=== PATIENT | female | born 1980 | race Caucasian/White ===

== ENCOUNTER 2017-04-13 19:54 | Emergency (ER) | payer OTHER ==
[~2017-04-13 19:54] MED LIST: Cipro 500 MG PO ONE
[2017-04-13] MEDS ORDERED: MORPHINE SULFATE 4 MG INJ IV ONE ×2 (20:20→22:53)
[2017-04-13] MEDS ORDERED: Sodium Chloride 0.9% 1000 ML 1,000 ML IV STA (20:20)
[2017-04-13] MEDS ORDERED: Zofran 4 MG/2 ML VIAL IV ONE (20:20)
--- NOTE | 2017-04-13 20:25 | ERPHSYRPT ---
- History of Present Illness Time Seen by Provider: 04/13/17 20:22 Historian: patient Exam Limitations: no limitations Patient Subjective Stated Complaint: pt has co right side abd pain for todays then tonight it is worse than having 2 c- sections no fever no vomiting pos sore throat -history of similar pain in the past Triage Nursing Assessment: pt is awake and alert and holding hir right abd Physician History: 37-year-old white female with history of bronchitis anxiety is restless leg syndrome She arrives with complaint of right lower quadrant pain nausea symptoms for 2 days no vomiting no diarrhea no melena no hematochezia and no vaginal discharge. Past medical history includes bronchitis, anxiety, restless legs. Past surgical history includes , cholecystectomy, tubal ligation, carpal tunnel, tonsillectomy. Social history positive for tobacco use Timing/Duration: day(s) (2 days) Activities at Onset: none Quality: cramping Abdominal Pain Onset Location: RLQ Pain Radiation: flank (right flank) Severity of Pain-Max: moderate Severity of Pain-Current: moderate Modifying Factors: Improves With: nothing Associated Symptoms: back (right flank pain), nausea, No chest pain, No diaphoresis, No diarrhea, No fever/chills, No fatigue, No headache, No heartburn , No loss of appetite, No neck pain, No rash, No shortness of breath, No syncope , No vomiting, No weakness Previous symptoms: same symptoms as today (patient states she had similar symptoms with ovarian cysts in the past patient with normal pelvic ultrasound November of this year) Allergies/Adverse Reactions: Penicillins Allergy (Mild, Verified 04/13/17 20:27) Hives Home Medications: Sertraline HCl 50 mg [Zoloft 50 mg Tablet] 150 mg PO DAILY 10/08/16 [History ] Hx Tetanus, Diphtheria Vaccination/Date Given: Yes Hx Influenza Vaccination/Date Given: No Hx Pneumococcal Vaccination/Date Given: No - Review of Systems Constitutional: No Fever, No Chills Eyes: No Symptoms Respiratory: No Cough, No Dyspnea Cardiac: No Chest Pain, No Edema, No Syncope Abdominal/Gastrointestinal: Abdominal Pain, Nausea, No Vomiting, No Diarrhea, No Constipation, No Hematemesis, No Hematochezia, No Melena, No Dysphagia, No Appetite Changes Genitourinary Symptoms: Flank Pain (right flank pain), No Dysuria Musculoskeletal: Other (right flank pain), No Back Pain, No Neck Pain Skin: No Rash Neurological: No Dizziness, No Focal Weakness, No Sensory Changes Psychological: No Symptoms Endocrine: No Symptoms All Other Systems: Reviewed and Negative - Past Medical History Pertinent Past Medical History: Yes Neurological History: No Pertinent History ENT History: No Pertinent History Cardiac History: No Pertinent History Respiratory History: Bronchitis Endocrine Medical History: No Pertinent History Musculoskeletal History: Other GI Medical History: No Pertinent History History: No Pertinent History Psycho-Social History: Anxiety Female Reproductive Disorders: No Pertinent History Other Medical History: RESTLESS LEG SYNDROME. - Past Surgical History Past Surgical History: Yes Neuro Surgical History: No Pertinent History Cardiac: No Pertinent History Respiratory: No Pertinent History Gastrointestinal: Cholecystectomy Musculoskeletal: Orthopedic Surgery Female Surgical History: Section, Tubal Ligation Other Surgical History: CARPAL TUNNEL BILAT. TONSILS - Social History Smoking Status: Current every day smoker How long have you smoked: 15 YEARS Exposure to second hand smoke: No Drug Use: methamphetamines Patient Lives Alone: No - Female History Hx Last Menstrual Period: last month Hx Now: No - Nursing Vital Signs Nursing Vital Signs: Initial Vital Signs Temperature 98 F Temperature Source Oral Pulse Rate 90 Respiratory Rate 18 Blood Pressure [] 122/100 Pain Intensity 10 - Physical Exam General Appearance: moderate distress Eye Exam: PERRL/EOMI, eyes nml inspection Ears, Nose, Throat Exam: normal ENT inspection, pharynx normal, moist mucous membranes Neck Exam: normal inspection, non-tender, supple, full range of motion Respiratory Exam: normal breath sounds, lungs clear, No respiratory distress Cardiovascular Exam: regular rate/rhythm, normal heart sounds Gastrointestinal/Abdomen Exam: soft, normal bowel sounds, tenderness (right lower quadrant tenderness) Back Exam: CVA tenderness (right flank tenderness) Extremity Exam: normal inspection, normal range of motion, pelvis stable Neurologic Exam: alert, oriented x 3, cooperative, normal mood/affect, nml cerebellar function, sensation nml, No motor deficits Skin Exam: normal color, warm, dry SpO2 Interpretation: normal - Course Nursing assessment & vital signs reviewed: Yes - CT Exams Abdomen/Pelvis CT Interpretation: Tele-radiologist Report (CT abdomen and pelvis without contrast: Impression 1 right [place] ureteral without obstructing urolithiasis may be due to a passed calculus,reflux,or ascending infection, correlate with urinalysis. 2 cholecystectomy 3. Minimal right lower lobe small airway disease. Likely infectious/inflammatory bronchiolitis) Ordered Tests: Active Orders 24 hr Category Date Time Status Clean Catch Urine Specimen STAT Care 04/13/17 20:39 Active IV Insertion STAT Care 04/13/17 20:20 Active ABDOMEN AND PELVIS W/0 CONTRAS [CT] Stat Exams 04/13/17 21:18 Taken AMYLASE Stat Lab 04/13/17 20:30 Completed CBC W DIFF Stat Lab 04/13/17 20:30 Completed CMP Stat Lab 04/13/17 20:30 Completed HCG QUALITATIVE,SERUM Stat Lab 04/13/17 20:30 Completed LIPASE Stat Lab 04/13/17 20:30 Completed UA Stat Lab 04/13/17 20:33 Completed Medication Summary Discontinued Medications Generic Name Dose Route Start Last Admin Trade Name Freq PRN Reason Stop Dose Admin Sodium Chloride 1,000 mls @ 999 mls/hr 04/13/17 20:20 04/13/17 20:39 Sodium Chloride 0.9% 1000 Ml IV 04/13/17 21:20 999 mls/hr .Q1H1M STA Administration Sodium Chloride Confirm 04/13/17 20:29 Sodium Chloride 0.9% 1000 Ml Administered 04/13/17 20:30 Dose 1,000 mls @ ud .ROUTE .STK-MED ONE Ketorolac Tromethamine 30 mg 04/13/17 21:18 04/13/17 21:28 Toradol 30 Mg Injection IV 04/13/17 21:19 30 mg STAT ONE Administration Ketorolac Tromethamine Confirm 04/13/17 21:27 Toradol 30 Mg Injection Administered 04/13/17 21:28 Dose 30 mg .ROUTE .STK-MED ONE Morphine Sulfate 4 mg 04/13/17 20:20 04/13/17 20:38 Morphine Sulfate 4 Mg Inj IV 04/13/17 20:21 4 mg STAT ONE Administration Morphine Sulfate Confirm 04/13/17 20:29 Morphine Sulfate 4 Mg Inj Administered 04/13/17 20:30 Dose 4 mg .ROUTE .STK-MED ONE Ondansetron HCl 4 mg 04/13/17 20:20 04/13/17 20:38 Zofran 4 Mg/2 Ml Vial IV 04/13/17 20:21 4 mg STAT ONE Administration Ondansetron HCl Confirm 04/13/17 20:29 Zofran 4 Mg/2 Ml Vial Administered 04/13/17 20:30 Dose 4 mg .ROUTE .STK-MED ONE Lab/Rad Data: Laboratory Result Diagrams 04/13/17 20:30 04/13/17 20:30 Laboratory Results 04/13/17 04/13/17 04/13/17 Range/Units 20:33 20:30 20:30 WBC (4.0-10.5) K/mm3 RBC (4.1-5.4) M/mm3 Hgb (12.0-16.0) gm/dl Hct (35-47) % MCV (78-100) fl MCH (26-32) pg MCHC (32-36) g/dl RDW (11.5-14.0) % Plt Count (150-450) K/mm3 MPV (6-9.5) fl Gran % (36.0-66.0) % Lymphocytes % (24.0-44.0) % Monocytes % (0.0-12.0) % Eosinophils % (0.00-5.0) % Basophils % (0.0-0.4) % Basophils # (0-0.4) Sodium 137 (136-145) mEq/L Potassium 3.8 (3.5-5.1) mEq/L Chloride 105 (98-107) mEq/L Carbon Dioxide 23.4 (21-32) mEq/L Anion Gap 11.9 (5-15) MEQ/L BUN 14 (9-20) mg/dL Creatinine 0.95 (0.55-1.30) mg/dl Estimated GFR > 60 ML/MIN Glucose 106 (70-110) MG/DL Calcium 8.9 (8.5-10.1) mg/dL Total Bilirubin 0.2 (0.2-1.0) mg/dL AST 38 H (15-37) U/L ALT 56 (12-78) U/L Alkaline Phosphatase 81 (46-116) U/L Serum Total Protein 7.1 (6.4-8.2) gm/dL Albumin 3.3 L (3.4-5.0) g/dL Amylase 43 (25-115) U/L Lipase 136 (73-393) U/L Serum , Qual NEGATIVE (Negative) Ur Collection Type CLEAN CATCH Urine Color YELLOW (YELLOW) Urine Appearance CLEAR (CLEAR) Urine pH 5.5 (5-6) Ur Specific [place] 1.025 (1.005-1.025) Urine Protein NEGATIVE (Negative) Urine Glucose (UA) NEGATIVE (NEGATIVE) mg/dL Urine Ketones NEGATIVE (NEGATIVE) Urine Nitrite NEGATIVE (NEGATIVE) Urine Bilirubin NEGATIVE (NEGATIVE) Urine Urobilinogen 0.2 (0-1) mg/dL Urine WBC (Auto) NEGATIVE (NEGATIVE) Urine RBC (Auto) NEGATIVE (0-5) Edgard/ul Specimen Received [id number] 04/13/17 Range/Units 20:30 WBC 7.4 (4.0-10.5) K/mm3 RBC 5.12 (4.1-5.4) M/mm3 Hgb 15.2 (12.0-16.0) gm/dl Hct 45.1 (35-47) % MCV 88.1 (78-100) fl MCH 29.7 (26-32) pg MCHC 33.7 (32-36) g/dl RDW 12.6 (11.5-14.0) % Plt Count 259 (150-450) K/mm3 MPV 9.5 (6-9.5) fl Gran % 63.0 (36.0-66.0) % Lymphocytes % 25.8 (24.0-44.0) % Monocytes % 10.0 (0.0-12.0) % Eosinophils % 1.1 (0.00-5.0) % Basophils % 0.1 (0.0-0.4) % Basophils # 0.01 (0-0.4) Sodium (136-145) mEq/L Potassium (3.5-5.1) mEq/L Chloride (98-107) mEq/L Carbon Dioxide (21-32) mEq/L Anion Gap (5-15) MEQ/L BUN (9-20) mg/dL Creatinine (0.55-1.30) mg/dl Estimated GFR ML/MIN Glucose (70-110) MG/DL Calcium (8.5-10.1) mg/dL Total Bilirubin (0.2-1.0) mg/dL AST (15-37) U/L ALT (12-78) U/L Alkaline Phosphatase (46-116) U/L Serum Total Protein (6.4-8.2) gm/dL Albumin (3.4-5.0) g/dL Amylase (25-115) U/L Lipase (73-393) U/L Serum , Qual (Negative) Ur Collection Type Urine Color (YELLOW) Urine Appearance (CLEAR) Urine pH (5-6) Ur Specific [place] (1.005-1.025) Urine Protein (Negative) Urine Glucose (UA) (NEGATIVE) mg/dL Urine Ketones (NEGATIVE) Urine Nitrite (NEGATIVE) Urine Bilirubin (NEGATIVE) Urine Urobilinogen (0-1) mg/dL Urine WBC (Auto) (NEGATIVE) Urine RBC (Auto) (0-5) Edgard/ul Specimen Received - Progress Progress: improved Progress Note: 04/13/17 22:48 This is a 37-year-old white female arrives with complaint of right lower quadrant right flank pain. CT of the abdomen shows 1. Right hydro urinoma nephrosis without obstructing urolithiasis, nonspecific, may be due to a passed calculus, reflux, or ascending infection and should be correlated with urinalysis 2 cholecystectomy 3 minimal right lower lobe small airway disease likely infectious/inflammatory bronchiolitis. Patient has been given morphine for pain and will give patient more Will plan home with tramadol she states she cannot take hydrocodone. Will place patient on Cipro 500 mg orally twice a day for 10 days. Patient to follow-up with Dr. Elam - Departure Time of Disposition: 22:50 Departure Disposition: Home Clinical Impression: Right flank pain, Right lower quadrant pain, Bronchiolitis Condition: Fair Critical Care Time: No Instructions: Abdominal Pain-Adult Additional Instructions: Return home. Plenty of fluids. Cipro 500 mg orally twice a day for 10 days. Tramadol 50 mg 1 orally every 4-6 hours as needed for pain #12. Follow-up with Dr. Elam. Strain all urine. Return for acute distress or for severe symptoms. Prescriptions: Ciprofloxacin [Cipro 500 MG] 500 mg PO BIDAC #20 tablet Tramadol HCl 50 mg [Ultram 50 mg] 50 mg PO Q4-6HPRN PRN #12 tablet PRN Reason: Pain
[2017-04-13] MEDS ORDERED: MORPHINE SULFATE 4 MG INJ ONE ×2 (20:29→22:55)
[2017-04-13] MEDS ORDERED: Sodium Chloride 0.9% 1000 ML 1,000 ML ONE (20:29)
[2017-04-13] MEDS ORDERED: Zofran 4 MG/2 ML VIAL ONE (20:29)
[2017-04-13 20:39] LABS: BASOPHIL % 0.1 % (0.0-0.4); Eosinophil % 1.1 % (0.00-5.0); Lymphocytes % 25.8 % (24.0-44.0); Mean Cell Volume 88.1 fl (78-100); Mean Corpuscular Hemoglobin 29.7 pg (26-32); Mean Platelet Volume 9.5 fl (6-9.5); Platelet Count 259 K/mm3 (150-450); Red Blood Count 5.12 M/mm3 (4.1-5.4); Red Cell Distribution Width 12.6 % (11.5-14.0); White Blood Count 7.4 K/mm3 (4.0-10.5)
[2017-04-13 20:52] LABS: Collection Type CLEAN CATCH; Ph 5.5 (5-6)
[2017-04-13 20:53] LABS: COMPLETE URINE MICROSCOPIC? NO
[2017-04-13 21:03] LABS: ALBUMIN 3.3 g/dL (3.4-5.0); ALKALINE PHOSPHATASE 81 U/L (46-116); ANION GAP 11.9 MEQ/L (5-15); BILIRUBIN,TOTAL 0.2 mg/dL (0.2-1.0); BLOOD UREA NITROGEN 14 mg/dL (9-20); CHLORIDE 105 mEq/L (98-107); Carbon Dioxide 23.4 mEq/L (21-32); Glucose 106 MG/DL (70-110); LIPASE 136 U/L (73-393); Potassium 3.8 mEq/L (3.5-5.1); SGOT/AST 38 U/L (15-37); SGPT/ALT 56 U/L (12-78); SODIUM 137 mEq/L (136-145); Total Protein 7.1 gm/dL (6.4-8.2)
[2017-04-13] MEDS ORDERED: TORAdol 30 mg Injection IV ONE (21:18)
[2017-04-13] MEDS ORDERED: TORAdol 30 mg Injection ONE (21:27)
[2017-04-13] MEDS ORDERED: Levofloxacin 500 MG Tablet PO ONE (22:52)
[2017-04-13] MEDS ORDERED: Cipro 500 MG ONE (22:55)
[2017-04-13 23:22] VITALS: BP 128/92; PULSE 88; O2SAT 96
--- NOTE | 2017-04-14 09:13 | XRAY ---
Indication: Right flank pain. Multiple contiguous axial images obtained through the abdomen and pelvis without contrast as ordered. Comparison: November 06, 2015. Lung bases demonstrates new right lower lobe tree-in-bud opacities with mild bronchial wall thickening favoring underlying inflammatory/infectious process. No consolidation or large effusion. Heart is not enlarged. Noncontrasted stomach and bowel loops again appear nonobstructed. There is now mild diffuse scattered colonic fecal debris throughout. Normal appendix. No free fluid/air. Right kidney demonstrates minimal hydronephrosis and ureteral prominence without calculus. Question recent passage of calculus. Scattered tiny mesenteric nodes, possible adenitis. Again cholecystectomy. Remaining liver, pancreas, spleen, adrenal glands, kidneys, ureters, bladder, uterus, and aorta appear unremarkable for noncontrast exam. Osseous structures intact again with small thoracolumbar Schmorl nodes. Impression: 1. Right kidney demonstrates new minimal hydronephrosis and ureteral prominence along its entire course without obstructing calculus. Suspect recent passage of calculus. 2. Scattered tiny mesenteric nodes favoring mesenteric adenitis. 3. Fecal stasis without obstruction. 4. Right lower lobe tree-in-bud opacities with bronchial wall thickening favoring inflammatory/infectious process. Correlate clinically. Comment: Preliminary interpretation was made by [facility]. No critical discrepancy. CT DI 23.63
== END 2017-04-13 23:23 | disposition home or self-care (01) ==
LOC: ED 19:54
DX: R10.9 Unspecified abdominal pain (principal); R10.32 Left lower quadrant pain; J21.9 Acute bronchiolitis, unspecified
CPT/HCPCS: 36000; 36415; 74176; 80053; 81002; 82150; 83690; 84703; 85025; 96360; 96374; 96375; 96376; 99284; J1885; J2270; J2405; A9270-GY

== ENCOUNTER 2018-05-01 17:35 | Emergency (ER) | payer OTHER ==
[2018-05-01] MEDS ORDERED: BABY ASPIRIN 81 MG CHEW PO ONE (17:56)
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
[2018-05-01 18:27] LABS: BASOPHIL % 0.3 % (0.0-0.4); Basophil (Absolute #) 0.03 (0-0.4); Eosinophil % 0.9 % (0.00-5.0); Eosinophil (Absolute #) 0.08 (0-0.5); Granulocyte Absolute (ANC) 4.65 (1.4-6.9); Granulocytes % 53.9 % (36.0-66.0); Hematocrit 45.9 % (35-47); Hemoglobin 15.8 gm/dl (12.0-16.0); Lymphocyte (Absolute #) 3.22 (1.0-4.6); Lymphocytes % 37.2 % (24.0-44.0); Mean Cell Volume 84.8 fl (78-100); Mean Corpuscular Hemoglobin 29.2 pg (26-32); Mean Corpuscular Hgb Concent. 34.4 g/dl (32-36); Mean Platelet Volume 9.5 fl (6-9.5); Monocyte (Absolute #) 0.67 (0.0-1.3); Monocytes % 7.7 % (0.0-12.0); Platelet Count 304 K/mm3 (150-450); Red Blood Count 5.41 M/mm3 (4.1-5.4); Red Cell Distribution Width 13.1 % (11.5-14.0); White Blood Count 8.7 K/mm3 (4.0-10.5)
[2018-05-01 18:35] LABS: ALBUMIN 3.7 g/dL (3.5-5.0); ALKALINE PHOSPHATASE 64 U/L (38-126); AMYLASE 76 U/L (30-110); ANION GAP 12.6 MEQ/L (5-15); BLOOD UREA NITROGEN 14 mg/dL (7-17); CHLORIDE 109 mmol/L (98-107); Calcium 9.7 mg/dL (8.4-10.2); Carbon Dioxide 23 mmol/L (22-30); Creatinine 1 0.71 mg/dL (0.52-1.04); Glucose 102 mg/dL (74-106); LIPASE 158 U/L (23-300); Potassium 3.8 mmol/L (3.5-5.1); SGOT/AST 25 U/L (14-36); SGPT/ALT 42 U/L (0-35); SODIUM 141 mmol/L (137-145)
--- NOTE | 2018-05-01 20:07 | XRAY ---
Indication: Chest pain. Comparison: August 17, 2015. Portable chest again demonstrates normal heart, lungs, and bony thorax with a few incidental calcified granulomas.
[2018-05-01 21:55] VITALS: BP 112/76; PULSE 78; O2SAT 99
== END 2018-05-01 21:55 | disposition home or self-care (01) ==
LOC: ED 17:35
DX: R07.9 Chest pain, unspecified (principal)
CPT/HCPCS: 36000; 36415; 71045; 80053; 82150; 83690; 84484; 85025; 85379; 93005; 93041; 99284

== ENCOUNTER 2018-06-18 12:12 | Emergency (ER) | payer OTHER ==
--- NOTE | 2018-06-18 12:26 | ERPHSYRPT ---
- History of Present Illness Time Seen by Provider: 06/18/18 12:20 Source: patient Exam Limitations: no limitations Physician History: The patient is a 38-year-old left-handed female complaining that she accidentally injured her left middle finger while at work prior to arrival. 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 When the car door was open, the patient had her left hand in the door opening. The elderly lady closed the door on her left middle finger. The supply chain logistics manager of [employer] immediately gave the patient some Tylenol. Her past medical history is unremarkable. The patient does not want any narcotics. Occurred: just prior to arrival Method of Injury: direct blow Quality: constant, sharpness Severity of Pain-Max: moderate Severity of Pain-Current: moderate Extremities Pain Location: 3rd finger: left Modifying Factors: Improves With: pain medication (tylenol) Associated Symptoms: none Allergies/Adverse Reactions: Penicillins Allergy (Mild, Verified 05/01/18 17:44) Hives Hx Tetanus, Diphtheria Vaccination/Date Given: Yes Hx Influenza Vaccination/Date Given: No Hx Pneumococcal Vaccination/Date Given: No - Review of Systems Constitutional: No Fever, No Chills Eyes: No Symptoms Ears, Nose, & Throat: No Symptoms Respiratory: No Cough, No Dyspnea Cardiac: No Chest Pain, No Edema, No Syncope Abdominal/Gastrointestinal: No Abdominal Pain, No Nausea, No Vomiting, No Diarrhea Genitourinary Symptoms: No Dysuria Musculoskeletal: Injury Skin: No Rash Neurological: No Dizziness, No Focal Weakness, No Sensory Changes Psychological: No Symptoms Endocrine: No Symptoms Hematologic/Lymphatic: No Symptoms Immunological/Allergic: No Symptoms All Other Systems: Reviewed and Negative - Past Medical History Pertinent Past Medical History: Yes Neurological History: No Pertinent History ENT History: No Pertinent History Cardiac History: No Pertinent History Respiratory History: Bronchitis Endocrine Medical History: No Pertinent History Musculoskeletal History: Other GI Medical History: No Pertinent History History: No Pertinent History Psycho-Social History: Anxiety, Bipolar, Depression Female Reproductive Disorders: No Pertinent History Other Medical History: RESTLESS LEG SYNDROME. - Past Surgical History Past Surgical History: Yes Neuro Surgical History: No Pertinent History Cardiac: No Pertinent History Respiratory: No Pertinent History Gastrointestinal: Cholecystectomy Musculoskeletal: Orthopedic Surgery Female Surgical History: Section, Tubal Ligation Other Surgical History: CARPAL TUNNEL BILAT. TONSILS - Social History Smoking Status: Current every day smoker How long have you smoked: 20 Exposure to second hand smoke: No Drug Use: marijuana Patient Lives Alone: No - Nursing Vital Signs Nursing Vital Signs: Initial Vital Signs Temperature 98.0 F 06/18/18 12:16 Pulse Rate 88 06/18/18 12:16 Respiratory Rate 18 06/18/18 12:16 Blood Pressure 101/67 06/18/18 12:16 O2 Sat by Pulse Oximetry 100 06/18/18 12:16 Pain Scale Pain Intensity 6 - Physical Exam General Appearance: mild distress Eyes, Ears, Nose, Throat Exam: moist mucous membranes Neck Exam: non-tender, supple Cardiovascular/Respiratory Exam: chest non-tender, normal breath sounds, regular rate/rhythm, no respiratory distress Abdominal Exam: non-tender, No guarding Back Exam: normal inspection, No vertebral tenderness Shoulder Exam: normal inspection Elbow/Forearm Exam: normal inspection Wrist Exam: normal inspection Hand Exam: limited ROM (left middle finger at IP.), soft tissue tenderness, stiffness, swelling Neuro/Tendon Exam: normal sensation, normal motor functions Mental Status Exam: alert, oriented x 3, cooperative Skin Exam: normal color, warm, dry SpO2 Interpretation: normal Oxygen Delivery: Room Air - Radiology Exams Left Hand X-ray Interpretation: Reviewed by me, Teleradiologist Report (per Dr Dukes) , Negative, No Fracture Ordered Tests: Active Orders 24 hr Category Date Time Status Cold Application STAT Care 06/18/18 12:18 Active HAND (MINIMUM 3 VIEWS) Stat Exams 06/18/18 12:28 Taken Medication Summary Discontinued Medications Generic Name Dose Route Start Last Admin Trade Name Jen PRN Reason Stop Dose Admin Ketorolac Tromethamine 60 mg 06/18/18 12:28 06/18/18 12:32 Toradol 30 Mg Injection IM 06/18/18 12:29 60 mg STAT ONE Administration Ketorolac Tromethamine Confirm 06/18/18 12:30 Toradol 30 Mg Injection Administered 06/18/18 12:31 Dose 60 mg .ROUTE .STK-MED ONE - Progress Progress: improved Counseled pt/family regarding: rad results - Departure Time of Disposition: 14:11 Departure Disposition: Home Clinical Impression: Contusion of left middle finger without damage to nail Condition: Stable Critical Care Time: No Referrals: JANUSZ ISAACS [Primary Care Provider] - Additional Instructions: You have a contusion to your left finger. There are no broken bones. Apply ice as needed to the area. Take naproxen 500 mg 2 times a day as needed. Follow-up as needed. Prescriptions: Naproxen 500 mg PO BID #30 tablet.
[2018-06-18] MEDS ORDERED: TORAdol 30 mg Injection IM ONE (12:28)
[2018-06-18] MEDS ORDERED: TORAdol 30 mg Injection ONE (12:30)
[2018-06-18 13:29] VITALS: PULSE 76
[2018-06-18 14:16] VITALS: BP 119/76; O2SAT 98
--- NOTE | 2018-06-18 22:02 | XRAY ---
Indication: Pain following car door injury. Comparison: September 05, 2011. 3 views of the left hand demonstrates normal bones, articulation, and soft tissues. Comment: Preliminary interpretation was made by [facility]. No discrepancy.
== END 2018-06-18 14:20 | disposition home or self-care (01) ==
LOC: ED 12:12
DX: S60.032A Contusion of left middle finger without damage to nail, initial encounter (principal); W23.0XXA Caught, crushed, jammed, or pinched between moving objects, initial encounter; Y93.89 Activity, other specified; Y92.511 Restaurant or cafe as the place of occurrence of the external cause; Y99.0 Civilian activity done for income or pay
CPT/HCPCS: 73130; 96372; 99284; J1885

== ENCOUNTER 2019-01-03 15:47 | Emergency (ER) | payer OTHER ==
[2019-01-03] MEDS ORDERED: Sodium Chloride 0.9% 1000 ML 1,000 ML IV STA (16:19)
[2019-01-03] MEDS ORDERED: TORAdol 30 mg Injection IV ONE (16:19)
[2019-01-03] MEDS ORDERED: Zofran 4 MG/2 ML VIAL IV ONE (16:19)
[2019-01-03] MEDS ORDERED: Zofran 4 MG/2 ML VIAL ONE (16:23)
[2019-01-03] MEDS ORDERED: TORAdol 30 mg Injection ONE (16:23)
[2019-01-03] MEDS ORDERED: Sodium Chloride 0.9% 1000 ML 1,000 ML ONE (16:23)
--- NOTE | 2019-01-03 16:24 | ERPHSYRPT ---
- History of Present Illness Time Seen by Provider: 01/03/19 16:19 Historian: patient Exam Limitations: no limitations Patient Subjective Stated Complaint: STATES RIGHT LOWER ABD PAIN SINCE 8PM LAST NIGHT. DENIES N/V/D. Triage Nursing Assessment: AMBULATED TO ROOM PER SELF. SKIN W/D, COLOR NORMAL, RESP NONLABORED. ABD SOFT, TENDER RIGHT LOWER QUAD. NORMAL BOWEL SOUNDS. URINE CLEAR. Physician History: 38-year-old white female arrives with complaint of right lower quadrant abdominal pain associated with nausea symptoms since last night no vomiting no fevers. Past medical history includes bronchitis, anxiety, restless leg, bipolar depression Past surgical history includes , cholecystectomy, tubal ligation, carpal tunnel, tonsillectomy Social history former methamphetamine user, occasional alcohol use, positive tobacco use Timing/Duration: yesterday Activities at Onset: none Quality: cramping Abdominal Pain Onset Location: RLQ Pain Radiation: no radiation Severity of Pain-Max: moderate Severity of Pain-Current: moderate Modifying Factors: Improves With: nothing Associated Symptoms: nausea, No back, No chest pain, No diaphoresis, No diarrhea , No fever/chills, No fatigue, No headache, No heartburn, No loss of appetite, No neck pain, No rash, No shortness of breath, No syncope, No vomiting, No weakness Previous symptoms: same symptoms as today (patient had similar symptoms with dilatation of a ureter in the past) Allergies/Adverse Reactions: Penicillins Allergy (Mild, Verified 01/03/19 16:03) Hives Home Medications: Ciprofloxacin HCl/Dexameth [Ciprodex Otic Suspension] 7.5 ml OT BID 01/03/19 [ History] Naproxen 500 mg PO BIDPRN PRN 01/03/19 [History] Prednisone 20 mg [Deltasone 20 mg] 20 mg PO DAILY 01/03/19 [History] Sertraline HCl 50 mg [Zoloft 50 mg Tablet] 50 mg PO BID 01/03/19 [History] Hx Tetanus, Diphtheria Vaccination/Date Given: Yes (2014) Hx Influenza Vaccination/Date Given: Yes Hx Pneumococcal Vaccination/Date Given: No - Review of Systems Constitutional: No Fever, No Chills Eyes: No Symptoms Ears, Nose, & Throat: No Symptoms Respiratory: No Cough, No Dyspnea Cardiac: No Chest Pain, No Edema, No Syncope Abdominal/Gastrointestinal: Abdominal Pain, Nausea, No Vomiting, No Diarrhea, No Constipation, No Hematemesis, No Hematochezia, No Melena, No Dysphagia, No Appetite Changes Genitourinary Symptoms: No Dysuria Musculoskeletal: No Back Pain, No Neck Pain Skin: No Rash Neurological: No Dizziness, No Focal Weakness, No Sensory Changes Psychological: No Symptoms Endocrine: No Symptoms All Other Systems: Reviewed and Negative - Past Medical History Pertinent Past Medical History: Yes Neurological History: No Pertinent History ENT History: No Pertinent History Cardiac History: No Pertinent History Respiratory History: Bronchitis Endocrine Medical History: No Pertinent History Musculoskeletal History: Other GI Medical History: No Pertinent History History: No Pertinent History Psycho-Social History: Anxiety, Bipolar, Depression Female Reproductive Disorders: No Pertinent History Other Medical History: RESTLESS LEG SYNDROME. - Past Surgical History Past Surgical History: Yes Neuro Surgical History: No Pertinent History Cardiac: No Pertinent History Respiratory: No Pertinent History Gastrointestinal: Cholecystectomy Musculoskeletal: Orthopedic Surgery Female Surgical History: Section, Tubal Ligation Other Surgical History: CARPAL TUNNEL - Social History Smoking Status: Current every day smoker How long have you smoked: 20 Exposure to second hand smoke: No Drug Use: marijuana Patient Lives Alone: No - Female History Hx Now: No - Nursing Vital Signs Nursing Vital Signs: Initial Vital Signs Temperature 97.8 F 01/03/19 15:53 Pulse Rate 113 H 01/03/19 15:53 Respiratory Rate 18 01/03/19 15:53 Blood Pressure 150/98 01/03/19 15:53 O2 Sat by Pulse Oximetry 98 01/03/19 15:53 Pain Scale Pain Intensity 8 - Physical Exam General Appearance: moderate distress Eye Exam: PERRL/EOMI, eyes nml inspection Ears, Nose, Throat Exam: normal ENT inspection, pharynx normal, moist mucous membranes Neck Exam: normal inspection, non-tender, supple, full range of motion Respiratory Exam: normal breath sounds, lungs clear, No respiratory distress Cardiovascular Exam: regular rate/rhythm, normal heart sounds, capillary refill <2 sec Gastrointestinal/Abdomen Exam: soft, tenderness (right lower quadrant tenderness ), No distention, No mass, No guarding, No ecchymosis, No pulsatile mass, No rebound, No hernia, No hepatomegaly, No organomegaly, No splenomegaly Back Exam: normal inspection, normal range of motion, No CVA tenderness, No vertebral tenderness Extremity Exam: normal inspection, normal range of motion, pelvis stable Neurologic Exam: alert, oriented x 3, cooperative, household personal assistant II-XII nml as tested, normal mood/affect, nml cerebellar function, sensation nml, No motor deficits Skin Exam: normal color, warm, dry SpO2 Interpretation: normal (98%) SpO2: 98 - Course Nursing assessment & vital signs reviewed: Yes - CT Exams Abdomen/Pelvis CT Interpretation: Discussed w/radiologist (CT abdomen and pelvis: Compared to April 13, 2017 impression: Worsening moderate diffuse fecal stasis normal appendix. Remaining abdomen and pelvis negative) Ordered Tests: Active Orders 24 hr Category Date Time Status Clean Catch Urine Specimen STAT Care 01/03/19 16:14 Active IV Insertion STAT Care 01/03/19 16:13 Active ABDOMEN AND PELVIS W/0 CONTRAS [CT] Stat Exams 01/03/19 16:20 Taken AMYLASE Stat Lab 01/03/19 16:38 Completed CBC W DIFF Stat Lab 01/03/19 16:38 Completed CMP Stat Lab 01/03/19 16:38 Completed HCG QUALITATIVE,SERUM Stat Lab 01/03/19 16:38 Completed LIPASE Stat Lab 01/03/19 16:38 Completed UA W/RFX UR CULTURE Stat Lab 01/03/19 16:21 Completed Medication Summary Discontinued Medications Generic Name Dose Route Start Last Admin Trade Name Freq PRN Reason Stop Dose Admin Sodium Chloride 1,000 mls @ 999 mls/hr 01/03/19 16:19 01/03/19 16:26 Sodium Chloride 0.9% 1000 Ml IV 01/03/19 17:19 999 mls/hr .Q1H1M STA Administration Sodium Chloride Confirm 01/03/19 16:23 Sodium Chloride 0.9% 1000 Ml Administered 01/03/19 16:24 Dose 1,000 mls @ ud .ROUTE .STK-MED ONE Ketorolac Tromethamine 30 mg 01/03/19 16:19 01/03/19 16:26 Toradol 30 Mg Injection IV 01/03/19 16:20 30 mg STAT ONE Administration Ketorolac Tromethamine Confirm 01/03/19 16:23 Toradol 30 Mg Injection Administered 01/03/19 16:24 Dose 30 mg .ROUTE .STK-MED ONE Ondansetron HCl 4 mg 01/03/19 16:19 01/03/19 16:26 Zofran 4 Mg/2 Ml Vial IV 01/03/19 16:20 4 mg STAT ONE Administration Ondansetron HCl Confirm 01/03/19 16:23 Zofran 4 Mg/2 Ml Vial Administered 01/03/19 16:24 Dose 4 mg .ROUTE .STK-MED ONE Lab/Rad Data: Laboratory Result Diagrams 01/03/19 16:38 01/03/19 16:38 Laboratory Results 01/03/19 01/03/19 01/03/19 Range/Units 16:38 16:38 16:38 WBC 11.0 H (4.0-10.5) K/mm3 RBC 4.73 (4.1-5.4) M/mm3 Hgb 14.1 (12.0-16.0) gm/dl Hct 42.6 (35-47) % MCV 90.1 (78-100) fl MCH 29.8 (26-32) pg MCHC 33.1 (32-36) g/dl RDW 13.2 (11.5-14.0) % Plt Count 147 L (150-450) K/mm3 MPV 12.4 H (6-9.5) fl Gran % 79.9 H (36.0-66.0) % Eos # (Auto) 0 (0-0.5) Absolute Lymphs (auto) 1.86 (1.0-4.6) Absolute Monos (auto) 0.33 (0.0-1.3) Lymphocytes % 17.0 L (24.0-44.0) % Monocytes % 3.0 (0.0-12.0) % Eosinophils % 0.0 (0.00-5.0) % Basophils % 0.1 (0.0-0.4) % Absolute Granulocytes 8.75 H (1.4-6.9) Basophils # 0.01 (0-0.4) Sodium 139 (137-145) mmol/L Potassium 4.4 (3.5-5.1) mmol/L Chloride 104 (98-107) mmol/L Carbon Dioxide 25 (22-30) mmol/L Anion Gap 14.2 (5-15) MEQ/L BUN 13 (7-17) mg/dL Creatinine 0.57 (0.52-1.04) mg/dL Estimated GFR > 60.0 ML/MIN Glucose 130 H (74-106) mg/dL Calcium 9.4 (8.4-10.2) mg/dL Total Bilirubin 0.40 (0.2-1.3) mg/dL AST 33 (14-36) U/L ALT 43 H (0-35) U/L Alkaline Phosphatase 65 (38-126) U/L Serum Total Protein 7.6 (6.3-8.2) g/dL Albumin 4.2 (3.5-5.0) g/dL Amylase 73 (30-110) U/L Lipase 74 (23-300) U/L Serum , Qual NEGATIVE (Negative) Urine Color (YELLOW) Urine Appearance (CLEAR) Urine pH (5-6) Ur Specific [place] (1.005-1.025) Urine Protein (Negative) Urine Ketones (NEGATIVE) Urine Blood (0-5) Edgard/ul Urine Nitrite (NEGATIVE) Urine Bilirubin (NEGATIVE) Urine Urobilinogen (0-1) mg/dL Ur Leukocyte Esterase (NEGATIVE) Urine WBC (Auto) (0-5) /HPF Urine RBC (Auto) (0-2) /HPF U Epithel Cells (Auto) (FEW) /HPF Urine Bacteria (Auto) (NEGATIVE) /HPF Urine Mucus (Auto) (NEGATIVE) /HPF Urine Culture Reflexed (NO) Urine Glucose (NEGATIVE) mg/dL 01/03/19 Range/Units 16:21 WBC (4.0-10.5) K/mm3 RBC (4.1-5.4) M/mm3 Hgb (12.0-16.0) gm/dl Hct (35-47) % MCV (78-100) fl MCH (26-32) pg MCHC (32-36) g/dl RDW (11.5-14.0) % Plt Count (150-450) K/mm3 MPV (6-9.5) fl Gran % (36.0-66.0) % Eos # (Auto) (0-0.5) Absolute Lymphs (auto) (1.0-4.6) Absolute Monos (auto) (0.0-1.3) Lymphocytes % (24.0-44.0) % Monocytes % (0.0-12.0) % Eosinophils % (0.00-5.0) % Basophils % (0.0-0.4) % Absolute Granulocytes (1.4-6.9) Basophils # (0-0.4) Sodium (137-145) mmol/L Potassium (3.5-5.1) mmol/L Chloride (98-107) mmol/L Carbon Dioxide (22-30) mmol/L Anion Gap (5-15) MEQ/L BUN (7-17) mg/dL Creatinine (0.52-1.04) mg/dL Estimated GFR ML/MIN Glucose (74-106) mg/dL Calcium (8.4-10.2) mg/dL Total Bilirubin (0.2-1.3) mg/dL AST (14-36) U/L ALT (0-35) U/L Alkaline Phosphatase (38-126) U/L Serum Total Protein (6.3-8.2) g/dL Albumin (3.5-5.0) g/dL Amylase (30-110) U/L Lipase (23-300) U/L Serum , Qual (Negative) Urine Color YELLOW (YELLOW) Urine Appearance CLEAR (CLEAR) Urine pH 8.0 (5-6) Ur Specific [place] 1.012 (1.005-1.025) Urine Protein NEGATIVE (Negative) Urine Ketones NEGATIVE (NEGATIVE) Urine Blood NEGATIVE (0-5) Edgard/ul Urine Nitrite NEGATIVE (NEGATIVE) Urine Bilirubin NEGATIVE (NEGATIVE) Urine Urobilinogen NEGATIVE (0-1) mg/dL Ur Leukocyte Esterase TRACE (NEGATIVE) Urine WBC (Auto) NONE (0-5) /HPF Urine RBC (Auto) NONE (0-2) /HPF U Epithel Cells (Auto) RARE (FEW) /HPF Urine Bacteria (Auto) NONE SEEN (NEGATIVE) /HPF Urine Mucus (Auto) SLIGHT (NEGATIVE) /HPF Urine Culture Reflexed NO (NO) Urine Glucose NEGATIVE (NEGATIVE) mg/dL - Progress Progress: improved Progress Note: 01/03/19 17:20 Patient improved after receiving Toradol 30 mg IV and normal saline and Zofran. Patient's CBC essentially normal urinalysis essentially normal hCG negative chemistry essentially normal (glucose 1:30 SGPT 43 otherwise normal) amylase lipase are normal. CT abdomen and pelvis worsening moderate diffuse fecal stasis normal appendix. Remaining abdomen/pelvis negative. Will release with prescription for MiraLAX Patient to go to clear fluids 24-48 hours Tylenol as needed for pain. - Departure Time of Disposition: 17:22 Departure Disposition: [facility]Care Home Clinical Impression: Abdominal pain Qualifiers: Abdominal location: right lower quadrant Qualified Code(s): R10.31 - Right lower quadrant pain Constipation Qualifiers: Constipation type: unspecified constipation type Qualified Code(s): K59.00 - Constipation, unspecified Condition: Fair Critical Care Time: No Referrals: JANUSZ ISAACS [Primary Care Provider] - Instructions: Acute Abdomen (Belly Pain), Adult (DC) Additional Instructions: Return home. Clear fluids only 24-48 hours if abdominal pain. MiraLAX 1 scoop in 8 ounces of water orally daily. Tylenol every 4 hours as needed for pain. Follow-up with prison doctor if symptoms worse, no better in 24-48 hours or persist longer than 48 hours. Return for acute distress or for severe symptoms.
[2019-01-03 16:39] LABS: BASOPHIL % 0.1 % (0.0-0.4); Basophil (Absolute #) 0.01 (0-0.4); Eosinophil (Absolute #) 0 (0-0.5); Granulocyte Absolute (ANC) 8.75 (1.4-6.9); Granulocytes % 79.9 % (36.0-66.0); Hematocrit 42.6 % (35-47); Hemoglobin 14.1 gm/dl (12.0-16.0); Lymphocyte (Absolute #) 1.86 (1.0-4.6); Mean Cell Volume 90.1 fl (78-100); Mean Corpuscular Hemoglobin 29.8 pg (26-32); Mean Corpuscular Hgb Concent. 33.1 g/dl (32-36); Mean Platelet Volume 12.4 fl (6-9.5); Monocyte (Absolute #) 0.33 (0.0-1.3); Platelet Count 147 K/mm3 (150-450); Red Blood Count 4.73 M/mm3 (4.1-5.4); Red Cell Distribution Width 13.2 % (11.5-14.0)
[2019-01-03 16:42] LABS: Appearance CLEAR (CLEAR); Bilirubin NEGATIVE (NEGATIVE); Blood NEGATIVE Ery/ul (0-5); Epithelial Cells RARE /HPF (FEW); Glucose NEGATIVE (NEGATIVE); Ketones NEGATIVE (NEGATIVE); Leukocyte Esterase TRACE (NEGATIVE); Mucus SLIGHT /HPF (NEGATIVE); Nitrite NEGATIVE (NEGATIVE); Protein,Urine Dip NEGATIVE (Negative); Specific Gravity 1.012 (1.005-1.025); Urobilinogen NEGATIVE mg/dL (0-1)
[2019-01-03 16:43] LABS: Bacteria NONE SEEN /HPF (NEGATIVE)
[2019-01-03 16:49] LABS: ALBUMIN 4.2 g/dL (3.5-5.0); ALKALINE PHOSPHATASE 65 U/L (38-126); AMYLASE 73 U/L (30-110); ANION GAP 14.2 MEQ/L (5-15); BLOOD UREA NITROGEN 13 mg/dL (7-17); CHLORIDE 104 mmol/L (98-107); Calcium 9.4 mg/dL (8.4-10.2); Carbon Dioxide 25 mmol/L (22-30); Creatinine 1 0.57 mg/dL (0.52-1.04); Glucose 130 mg/dL (74-106); LIPASE 74 U/L (23-300); Potassium 4.4 mmol/L (3.5-5.1); SGOT/AST 33 U/L (14-36); SGPT/ALT 43 U/L (0-35); SODIUM 139 mmol/L (137-145); Total Protein 7.6 g/dL (6.3-8.2)
[2019-01-03 17:37] VITALS: BP 123/82; PULSE 88; O2SAT 96
--- NOTE | 2019-01-04 08:41 | XRAY ---
Indication: Right lower quadrant pain. Elevated WBC and ALT. Multiple contiguous axial images obtained through the abdomen and pelvis without contrast as ordered. Comparison: April 13, 2017. Lung bases essentially clear. Heart is not enlarged. Stomach is distended with food/fluid. Noncontrasted stomach and bowel loops appear nonobstructed. Normal appendix. No free fluid/air. Marked worsening diffuse scattered colonic fecal debris throughout. Again previous cholecystectomy. Remaining liver, pancreas, spleen, adrenal glands, kidneys, ureters, bladder, uterus, and aorta appear unremarkable for noncontrast exam. Osseous structures intact again with mild degenerative changes throughout the spine and multilevel small Schmorl nodes. Impression: 1. Marked worsening diffuse fecal stasis. 2. Remaining CT abdomen/pelvis without contrast exam is negative. CT DI 19.01
== END 2019-01-03 17:40 | disposition home or self-care (01) ==
LOC: ED 15:47
DX: R10.31 Right lower quadrant pain (principal); K59.00 Constipation, unspecified; F12.90 Cannabis use, unspecified, uncomplicated; F19.10 Other psychoactive substance abuse, uncomplicated; F41.9 Anxiety disorder, unspecified; F31.9 Bipolar disorder, unspecified; Z79.899 Other long term (current) drug therapy
CPT/HCPCS: 36000; 36415; 74176; 80053; 81001; 81025; 82150; 83690; 85025; 96360; 96374; 96375; 99284; J1885; J2405

== ENCOUNTER 2020-09-20 19:32 | Emergency (ER) | payer OTHER ==
[2020-09-20 19:55] VITALS: BP 125/70; PULSE 94; O2SAT 100
[2020-09-20] MEDS ORDERED: Zofran 4 MG/2 ML VIAL IV ONE (20:11)
[2020-09-20] MEDS ORDERED: Sodium Chloride 0.9% 1000 ML 1,000 ML IV STA (20:12)
[2020-09-20] MEDS ORDERED: TORAdol 30 mg Injection IV ONE (20:17)
--- NOTE | 2020-09-20 20:23 | ERPHSYRPT ---
- History of Present Illness Historian: patient Exam Limitations: clinical condition Patient Subjective Stated Complaint: "My side hurts." Triage Nursing Assessment: . Physician History: 40yo female with no medical hx but surgical hx of GB removal and C/S. Having left sided abd and flank pain x 5 weeks. NV x 2 weeks. Occasional diarrhea. No fever. Denies ETOH or drug use. NO hx of UTIs or kidney stones. Denies URI or GERD. Timing/Duration: week(s) (5) Activities at Onset: none Quality: sharpness, stabbing Abdominal Pain Onset Location: LUQ, LLQ, flank Pain Radiation: no radiation Severity of Pain-Max: severe Severity of Pain-Current: severe Modifying Factors: Improves With: nothing Associated Symptoms: nausea, vomiting Previous symptoms: no prior history Allergies/Adverse Reactions: Penicillins Allergy (Mild, Verified 09/20/20 19:47) Hives Hx Tetanus, Diphtheria Vaccination/Date Given: Yes Hx Influenza Vaccination/Date Given: No Hx Pneumococcal Vaccination/Date Given: No Travel Risk - International Travel Have you traveled outside of the country in past 3 weeks: No - Coronavirus Screening Are you exhibiting any of the following symptoms?: Yes Symptoms: Vomiting/Diarrhea Close contact with a COVID-19 positive Pt in past 14-21 Days: No - Review of Systems Constitutional: No Fever, No Chills Eyes: No Symptoms Ears, Nose, & Throat: No Symptoms Respiratory: No Cough, No Dyspnea Cardiac: No Chest Pain, No Edema, No Syncope Abdominal/Gastrointestinal: Abdominal Pain, Nausea, Vomiting, Diarrhea Genitourinary Symptoms: Flank Pain, No Dysuria Musculoskeletal: No Back Pain, No Neck Pain Skin: No Rash Neurological: No Dizziness, No Focal Weakness, No Sensory Changes Psychological: No Symptoms Endocrine: No Symptoms All Other Systems: Reviewed and Negative - Past Medical History Pertinent Past Medical History: Yes Neurological History: No Pertinent History ENT History: No Pertinent History Cardiac History: No Pertinent History Respiratory History: Bronchitis Endocrine Medical History: No Pertinent History Musculoskeletal History: Other GI Medical History: No Pertinent History History: No Pertinent History Psycho-Social History: Anxiety, Bipolar, Depression Female Reproductive Disorders: No Pertinent History Other Medical History: RESTLESS LEG SYNDROME. - Past Surgical History Past Surgical History: Yes Neuro Surgical History: No Pertinent History Cardiac: No Pertinent History Respiratory: No Pertinent History Gastrointestinal: Cholecystectomy Musculoskeletal: Orthopedic Surgery Female Surgical History: Section, Tubal Ligation Other Surgical History: CARPAL TUNNEL BILAT. TONSILS - Social History Smoking Status: Current every day smoker How long have you smoked: 27 Exposure to second hand smoke: No Drug Use: none Patient Lives Alone: No - Female History Hx Last Menstrual Period: started 09/08/20 Hx Now: No - Nursing Vital Signs Nursing Vital Signs: Initial Vital Signs Temperature 97.9 F 09/20/20 19:33 Pulse Rate 94 H 09/20/20 19:33 Respiratory Rate 16 09/20/20 19:33 Blood Pressure 125/70 09/20/20 19:33 O2 Sat by Pulse Oximetry 100 09/20/20 19:33 Pain Scale Pain Intensity 10 - Physical Exam General Appearance: moderate distress, alert, anxiety Eye Exam: PERRL/EOMI, eyes nml inspection Ears, Nose, Throat Exam: normal ENT inspection, pharynx normal, moist mucous membranes Neck Exam: normal inspection, non-tender, supple, full range of motion Respiratory Exam: normal breath sounds, lungs clear, No respiratory distress Cardiovascular Exam: regular rate/rhythm, normal heart sounds Gastrointestinal/Abdomen Exam: soft, tenderness (Left sided), No mass, No guarding, No rebound, No organomegaly Pelvic Exam: deferred Rectal Exam: deferred Back Exam: normal inspection, normal range of motion, No CVA tenderness, No vertebral tenderness Extremity Exam: normal inspection, normal range of motion, pelvis stable, tenderness (left flank) Neurologic Exam: alert, oriented x 3, cooperative, nml cerebellar function, sensation nml, agitation, intoxicated appearance, No motor deficits Skin Exam: normal color, warm, dry SpO2: 100 - Course Nursing assessment & vital signs reviewed: Yes Ordered Tests: Active Orders 24 hr Category Date Time Status IV Insertion STAT Care 09/20/20 20:11 Active CBC W DIFF Stat Lab 09/20/20 20:01 Ordered CMP Stat Lab 09/20/20 20:01 Ordered LIPASE Stat Lab 09/20/20 20:01 Ordered PROTIME WITH INR Stat Lab 09/20/20 20:01 Ordered UA W/RFX UR CULTURE Stat Lab 09/20/20 20:10 Received Urine Triage Profile Stat Lab 09/20/20 20:02 Ordered Medication Summary Generic Name Dose Route Start Last Admin Trade Name Freq PRN Reason Stop Dose Admin Sodium Chloride 1,000 mls @ 999 mls/hr 09/20/20 20:12 Sodium Chloride 0.9% 1000 Ml IV 09/20/20 21:12 .Q1H1M STA Discontinued Medications Generic Name Dose Route Start Last Admin Trade Name Jen PRN Reason Stop Dose Admin Ondansetron HCl 4 mg 09/20/20 20:11 Zofran 4 Mg/2 Ml Vial IV 09/20/20 20:12 STAT ONE - Progress Progress: unchanged Progress Note: 09/20/20 20:23 Abd pain workup. Will provide toradol/zofran/IVF. Possible kidney stone vs SBO vs PUD. Pt decided she wanted to leave and no longer wants to stay here. I advised staying for treatment but she insisted on leaving. She stated " I never wanted to come here. They made me come here." She states she will sign AMA. She was offered transfer or another treatment option but she declined. - Departure Departure Disposition: AMA Clinical Impression: Abdominal pain Condition: Fair Critical Care Time: No Referrals: JANUSZ MITCHELL [Primary Care Provider] -
== END 2020-09-20 20:20 | disposition left against medical advice (07) ==
LOC: ED 19:32
DX: R10.9 Unspecified abdominal pain (principal)
CPT/HCPCS: 99283

== ENCOUNTER 2020-12-08 12:42 | Emergency (ER) | payer OTHER ==
[2020-12-08 13:00] VITALS: O2SAT 98
[2020-12-08] MEDS ORDERED: Sodium Chloride 0.9% 1000 ML 1,000 ML ONE (13:03)
[2020-12-08] MEDS ORDERED: Sodium Chloride 0.9% 1000 ML 1,000 ML IV STA (13:06)
[2020-12-08 13:16] LABS: Absolute Neutrophil Ct (ANC) 7.31 (1.4-6.9); BASOPHIL % 0.3 % (0.0-0.4); Basophil (Absolute #) 0.03 (0-0.4); Eosinophil % 0.5 % (0.00-5.0); Eosinophil (Absolute #) 0.06 (0-0.5); Hematocrit 49.1 % (35-47); Hemoglobin 16.4 gm/dl (12.0-16.0); Lymphocyte (Absolute #) 3.39 (1.0-4.6); Lymphocytes % 29.5 % (24.0-44.0); Mean Cell Volume 85.5 fl (78-100); Mean Corpuscular Hemoglobin 28.6 pg (26-32); Mean Corpuscular Hgb Concent. 33.4 g/dl (32-36); Mean Platelet Volume 9.7 fl (7.5-11.0); Monocyte (Absolute #) 0.72 (0.0-1.3); Monocytes % 6.3 % (0.0-12.0); Neutrophil % 63.4 % (36.0-66.0); Platelet Count 359 K/mm3 (150-450); Red Blood Count 5.74 M/mm3 (4.1-5.4); Red Cell Distribution Width 13.8 % (11.5-14.0); White Blood Count 11.5 K/mm3 (4.0-10.5)
[2020-12-08 13:22] LABS: ALBUMIN 3.9 g/dL (3.5-5.0); ALKALINE PHOSPHATASE 69 U/L (38-126); ANION GAP 10.3 MEQ/L (5-15); BLOOD UREA NITROGEN 14 mg/dL (7-17); CHLORIDE 108 mmol/L (98-107); Calcium 9.3 mg/dL (8.4-10.2); Carbon Dioxide 23 mmol/L (22-30); Creatinine 1 0.79 mg/dL (0.52-1.04); EST GLOMERULAR FILTRATION RATE > 60.0 ML/MIN; Glucose 120 mg/dL (74-106); Potassium 4.3 mmol/L (3.5-5.1); SGOT/AST 25 U/L (14-36); SGPT/ALT 25 U/L (0-35); SODIUM 137 mmol/L (137-145); Total Protein 7.6 g/dL (6.3-8.2)
[2020-12-08 13:27] LABS: Appearance CLOUDY (CLEAR); Bacteria RARE /HPF (NEGATIVE); Bilirubin NEGATIVE (NEGATIVE); Blood NEGATIVE Ery/ul (0-5); Epithelial Cells FEW /HPF (FEW); Glucose NEGATIVE (NEGATIVE); Ketones NEGATIVE (NEGATIVE); Leukocyte Esterase LARGE (NEGATIVE); Mucus SLIGHT /HPF (NEGATIVE); Nitrite NEGATIVE (NEGATIVE); Protein,Urine Dip 30 (Negative); Specific Gravity 1.019 (1.005-1.025); Urobilinogen NEGATIVE mg/dL (0-1)
[2020-12-08 13:34] LABS: Amphetamine,Urine NEGATIVE (NEGATIVE); Barbiturate,Urine NEGATIVE (NEGATIVE); Benzodiazepine,Urine NEGATIVE (NEGATIVE); Cocaine,Urine NEGATIVE (NEGATIVE); Methadone,Urine NEGATIVE (NEGATIVE); Opiate,Urine NEGATIVE (NEGATIVE); PCP,Urine NEGATIVE (NEGATIVE); THC,Urine NEGATIVE (NEGATIVE)
--- NOTE | 2020-12-08 13:38 | ERPHSYRPT ---
- History of Present Illness Source: patient Exam Limitations: no limitations Patient Subjective Stated Complaint: Pt states ill for one week. C/o fever, productive cough, shortness of breath, chest pain. Fever resolved two days ago per pt but pain increases. Is currently supposed to be on quarantine, day5. Triage Nursing Assessment: Pt skin pink, warm, dry. Lung sounds clear. Pt able to talk in complete sentences. Physician History: 40 yo wf w cough which is mildly productive x1 wk w fever/myalgias/arethralgias/St wo coryza/otalgia/N/V/D/dysuria/hematuria. Timing/Duration: other (1wk) Cough Quality/Degree: productive cough Possible Cause: no prior episodes Modifying Factors: Improves With: nothing Associated Symptoms: fever, chills, cough, muscle aches, shortness of breath Allergies/Adverse Reactions: Penicillins Allergy (Mild, Verified 12/08/20 13:01) Hives Hx Tetanus, Diphtheria Vaccination/Date Given: Yes Hx Influenza Vaccination/Date Given: No Hx Pneumococcal Vaccination/Date Given: No Travel Risk - International Travel Have you traveled outside of the country in past 3 weeks: No - Coronavirus Screening Are you exhibiting any of the following symptoms?: Yes Symptoms: Fever, Cough: New Onset, Shortness of Breath Close contact with a COVID-19 positive Pt in past 14-21 Days: Yes - Review of Systems Constitutional: Fever, Chills, Fatigue Eyes: No Symptoms Ears, Nose, & Throat: No Symptoms, Throat Pain Respiratory: Cough, Dyspnea Cardiac: No Symptoms Abdominal/Gastrointestinal: No Symptoms Genitourinary Symptoms: No Symptoms Musculoskeletal: No Symptoms Skin: No Symptoms Neurological: No Symptoms Psychological: No Symptoms Endocrine: No Symptoms Hematologic/Lymphatic: No Symptoms Immunological/Allergic: No Symptoms - Past Medical History Pertinent Past Medical History: Yes Neurological History: No Pertinent History ENT History: No Pertinent History Cardiac History: No Pertinent History Respiratory History: Bronchitis Endocrine Medical History: No Pertinent History Musculoskeletal History: Other GI Medical History: No Pertinent History History: No Pertinent History Psycho-Social History: Anxiety, Bipolar, Depression Female Reproductive Disorders: No Pertinent History Other Medical History: RESTLESS LEG SYNDROME., Hepatitis C - Past Surgical History Past Surgical History: Yes Neuro Surgical History: No Pertinent History Cardiac: No Pertinent History Respiratory: No Pertinent History Gastrointestinal: Cholecystectomy Musculoskeletal: Orthopedic Surgery Female Surgical History: Section, Tubal Ligation Other Surgical History: CARPAL TUNNEL BILAT. TONSILS - Social History Smoking Status: Current every day smoker How long have you smoked: 27 Exposure to second hand smoke: Yes Drug Use: none Patient Lives Alone: No Significant Family History: no pertinent family hx - Female History Hx Last Menstrual Period: 10/2021 Hx Now: No - Nursing Vital Signs Nursing Vital Signs: Initial Vital Signs Temperature 98.9 F 12/08/20 12:56 Pulse Rate 92 H 12/08/20 12:56 Respiratory Rate 18 12/08/20 12:56 Blood Pressure 123/86 12/08/20 12:56 O2 Sat by Pulse Oximetry 98 12/08/20 12:56 Pain Scale Pain Intensity 8 - Physical Exam General Appearance: no apparent distress, anxiety Eye Exam: PERRL/EOMI, eyes nml inspection Ears, Nose, Throat Exam: normal ENT inspection, TMs normal, pharynx normal, moist mucous membranes Neck Exam: normal inspection, non-tender, supple, full range of motion, No meningismus, No mass, No Brudzinski, No Kernig's Respiratory Exam: normal breath sounds, lungs clear, airway intact, No respiratory distress Cardiovascular Exam: tachycardia (Mildly tachy) Gastrointestinal/Abdomen Exam: soft, normal bowel sounds, No tenderness Back Exam: normal inspection, normal range of motion, No CVA tenderness, No vert ebral tenderness Extremity Exam: normal inspection, normal range of motion Neurologic Exam: alert, oriented x 3, cooperative, 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 as tested, normal mood/affect, nml cerebellar function, nml station & gait, sensation nml, No motor deficits, No sensory deficit Skin Exam: normal color, warm, dry, No rash Lymphatic Exam: No adenopathy SpO2 Interpretation: normal SpO2: 98 O2 Delivery: Room Air - Course Nursing assessment & vital signs reviewed: Yes - Radiology Exams Chest X-ray Interpretation: Interpreted by me (CXR neg per ER read) Ordered Tests: Active Orders 24 hr Category Date Time Status IV Insertion STAT Care 12/08/20 13:06 Completed CHEST 1 VIEW (PORTABLE) Stat Exams 12/08/20 13:06 Taken CBC W DIFF Stat Lab 12/08/20 13:06 Completed CMP Stat Lab 12/08/20 13:06 Completed CULTURE,URINE Stat Lab 12/08/20 13:09 Received INFLUENZA A+B CECI Stat Lab 12/08/20 13:30 Completed Lactic Acid Stat Lab 12/08/20 13:06 Completed UA W/RFX UR CULTURE Stat Lab 12/08/20 13:09 Completed Urine Triage Profile Stat Lab 12/08/20 13:08 Completed Medication Summary Discontinued Medications Generic Name Dose Route Start Last Admin Trade Name Jen PRN Reason Stop Dose Admin Sodium Chloride Confirm 12/08/20 13:03 Sodium Chloride 0.9% 1000 Ml Administered 12/08/20 13:04 Dose 1,000 mls @ ud .ROUTE .STK-MED ONE Sodium Chloride 1,000 mls @ 999 mls/hr 12/08/20 13:06 12/08/20 14:13 Sodium Chloride 0.9% 1000 Ml IV 12/08/20 14:06 Infused .Q1H1M STA Infusion Ceftriaxone Sodium/Dextrose 1 g in 50 mls @ 100 mls/hr 12/08/20 14:44 12/08/20 14:50 Rocephin 1 Gm-D5w 50 Ml Bag IV 12/08/20 15:13 100 mls/hr STAT STA 100 mls/hr Administration Ceftriaxone Sodium/Dextrose Confirm 12/08/20 14:47 Rocephin 1 Gm-D5w 50 Ml Bag Administered 12/08/20 14:48 Dose 1 g in 50 mls @ ud IV .STK-MED ONE Lab/Rad Data: Laboratory Result Diagrams 12/08/20 13:06 12/08/20 13:06 Laboratory Results 12/08/20 12/08/20 12/08/20 Range/Units 13:30 13:30 13:09 WBC (4.0-10.5) K/mm3 RBC (4.1-5.4) M/mm3 Hgb (12.0-16.0) gm/dl Hct (35-47) % MCV (78-100) fl MCH (26-32) pg MCHC (32-36) g/dl RDW (11.5-14.0) % Plt Count (150-450) K/mm3 MPV (7.5-11.0) fl Gran % (36.0-66.0) % Eos # (Auto) (0-0.5) Absolute Lymphs (auto) (1.0-4.6) Absolute Monos (auto) (0.0-1.3) Lymphocytes % (24.0-44.0) % Monocytes % (0.0-12.0) % Eosinophils % (0.00-5.0) % Basophils % (0.0-0.4) % Absolute Granulocytes (1.4-6.9) Basophils # (0-0.4) Sodium (137-145) mmol/L Potassium (3.5-5.1) mmol/L Chloride (98-107) mmol/L Carbon Dioxide (22-30) mmol/L Anion Gap (5-15) MEQ/L BUN (7-17) mg/dL Creatinine (0.52-1.04) mg/dL Estimated GFR ML/MIN Glucose (74-106) mg/dL Lactic Acid (0.4-2.0) Calcium (8.4-10.2) mg/dL Total Bilirubin (0.2-1.3) mg/dL AST (14-36) U/L ALT (0-35) U/L Alkaline Phosphatase (38-126) U/L Serum Total Protein (6.3-8.2) g/dL Albumin (3.5-5.0) g/dL Urine Color YELLOW (YELLOW) Urine Appearance CLOUDY (CLEAR) Urine pH 6.0 (5-6) Ur Specific [place] 1.019 (1.005-1.025) Urine Protein 30 (Negative) Urine Ketones NEGATIVE (NEGATIVE) Urine Blood NEGATIVE (0-5) Edgard/ul Urine Nitrite NEGATIVE (NEGATIVE) Urine Bilirubin NEGATIVE (NEGATIVE) Urine Urobilinogen NEGATIVE (0-1) mg/dL Ur Leukocyte Esterase LARGE (NEGATIVE) Urine WBC (Auto) 11-15 (0-5) /HPF Urine RBC (Auto) 16-25 (0-2) /HPF U Epithel Cells (Auto) FEW (FEW) /HPF Urine Bacteria (Auto) RARE (NEGATIVE) /HPF Urine Mucus (Auto) SLIGHT (NEGATIVE) /HPF Urine Culture Reflexed YES (NO) Urine Glucose NEGATIVE (NEGATIVE) mg/dL Urine Opiates Level (NEGATIVE) Ur Methadone (NEGATIVE) Urine Barbiturates (NEGATIVE) Ur Phencyclidine (PCP) (NEGATIVE) Urine Amphetamine (NEGATIVE) U Benzodiazepine Level (NEGATIVE) Urine Cocaine (NEGATIVE) Urine Marijuana (THC) (NEGATIVE) Influenza Type A Ag NEGATIVE (NEGATIVE) Influenza Type B Ag NEGATIVE (NEGATIVE) Group A Strep Antibody NOT DETECTED (NEGATIVE) Slides for Path Review 12/08/20 12/08/20 12/08/20 Range/Units 13:08 13:06 13:06 WBC (4.0-10.5) K/mm3 RBC (4.1-5.4) M/mm3 Hgb (12.0-16.0) gm/dl Hct (35-47) % MCV (78-100) fl MCH (26-32) pg MCHC (32-36) g/dl RDW (11.5-14.0) % Plt Count (150-450) K/mm3 MPV (7.5-11.0) fl Gran % (36.0-66.0) % Eos # (Auto) (0-0.5) Absolute Lymphs (auto) (1.0-4.6) Absolute Monos (auto) (0.0-1.3) Lymphocytes % (24.0-44.0) % Monocytes % (0.0-12.0) % Eosinophils % (0.00-5.0) % Basophils % (0.0-0.4) % Absolute Granulocytes (1.4-6.9) Basophils # (0-0.4) Sodium 137 (137-145) mmol/L Potassium 4.3 (3.5-5.1) mmol/L Chloride 108 H (98-107) mmol/L Carbon Dioxide 23 (22-30) mmol/L Anion Gap 10.3 (5-15) MEQ/L BUN 14 (7-17) mg/dL Creatinine 0.79 (0.52-1.04) mg/dL Estimated GFR > 60.0 ML/MIN Glucose 120 H (74-106) mg/dL Lactic Acid 1.3 (0.4-2.0) Calcium 9.3 (8.4-10.2) mg/dL Total Bilirubin 0.30 (0.2-1.3) mg/dL AST 25 (14-36) U/L ALT 25 (0-35) U/L Alkaline Phosphatase 69 (38-126) U/L Serum Total Protein 7.6 (6.3-8.2) g/dL Albumin 3.9 (3.5-5.0) g/dL Urine Color (YELLOW) Urine Appearance (CLEAR) Urine pH (5-6) Ur Specific [place] (1.005-1.025) Urine Protein (Negative) Urine Ketones (NEGATIVE) Urine Blood (0-5) Edgard/ul Urine Nitrite (NEGATIVE) Urine Bilirubin (NEGATIVE) Urine Urobilinogen (0-1) mg/dL Ur Leukocyte Esterase (NEGATIVE) Urine WBC (Auto) (0-5) /HPF Urine RBC (Auto) (0-2) /HPF U Epithel Cells (Auto) (FEW) /HPF Urine Bacteria (Auto) (NEGATIVE) /HPF Urine Mucus (Auto) (NEGATIVE) /HPF Urine Culture Reflexed (NO) Urine Glucose (NEGATIVE) mg/dL Urine Opiates Level NEGATIVE (NEGATIVE) Ur Methadone NEGATIVE (NEGATIVE) Urine Barbiturates NEGATIVE (NEGATIVE) Ur Phencyclidine (PCP) NEGATIVE (NEGATIVE) Urine Amphetamine NEGATIVE (NEGATIVE) U Benzodiazepine Level NEGATIVE (NEGATIVE) Urine Cocaine NEGATIVE (NEGATIVE) Urine Marijuana (THC) NEGATIVE (NEGATIVE) Influenza Type A Ag (NEGATIVE) Influenza Type B Ag (NEGATIVE) Group A Strep Antibody (NEGATIVE) Slides for Path Review 12/08/20 Range/Units 13:06 WBC 11.5 H (4.0-10.5) K/mm3 RBC 5.74 H (4.1-5.4) M/mm3 Hgb 16.4 H (12.0-16.0) gm/dl Hct 49.1 H (35-47) % MCV 85.5 (78-100) fl MCH 28.6 (26-32) pg MCHC 33.4 (32-36) g/dl RDW 13.8 (11.5-14.0) % Plt Count 359 (150-450) K/mm3 MPV 9.7 (7.5-11.0) fl Gran % 63.4 (36.0-66.0) % Eos # (Auto) 0.06 (0-0.5) Absolute Lymphs (auto) 3.39 (1.0-4.6) Absolute Monos (auto) 0.72 (0.0-1.3) Lymphocytes % 29.5 (24.0-44.0) % Monocytes % 6.3 (0.0-12.0) % Eosinophils % 0.5 (0.00-5.0) % Basophils % 0.3 (0.0-0.4) % Absolute Granulocytes 7.31 H (1.4-6.9) Basophils # 0.03 (0-0.4) Sodium (137-145) mmol/L Potassium (3.5-5.1) mmol/L Chloride (98-107) mmol/L Carbon Dioxide (22-30) mmol/L Anion Gap (5-15) MEQ/L BUN (7-17) mg/dL Creatinine (0.52-1.04) mg/dL Estimated GFR ML/MIN Glucose (74-106) mg/dL Lactic Acid (0.4-2.0) Calcium (8.4-10.2) mg/dL Total Bilirubin (0.2-1.3) mg/dL AST (14-36) U/L ALT (0-35) U/L Alkaline Phosphatase (38-126) U/L Serum Total Protein (6.3-8.2) g/dL Albumin (3.5-5.0) g/dL Urine Color (YELLOW) Urine Appearance (CLEAR) Urine pH (5-6) Ur Specific [place] (1.005-1.025) Urine Protein (Negative) Urine Ketones (NEGATIVE) Urine Blood (0-5) Edgard/ul Urine Nitrite (NEGATIVE) Urine Bilirubin (NEGATIVE) Urine Urobilinogen (0-1) mg/dL Ur Leukocyte Esterase (NEGATIVE) Urine WBC (Auto) (0-5) /HPF Urine RBC (Auto) (0-2) /HPF U Epithel Cells (Auto) (FEW) /HPF Urine Bacteria (Auto) (NEGATIVE) /HPF Urine Mucus (Auto) (NEGATIVE) /HPF Urine Culture Reflexed (NO) Urine Glucose (NEGATIVE) mg/dL Urine Opiates Level (NEGATIVE) Ur Methadone (NEGATIVE) Urine Barbiturates (NEGATIVE) Ur Phencyclidine (PCP) (NEGATIVE) Urine Amphetamine (NEGATIVE) U Benzodiazepine Level (NEGATIVE) Urine Cocaine (NEGATIVE) Urine Marijuana (THC) (NEGATIVE) Influenza Type A Ag (NEGATIVE) Influenza Type B Ag (NEGATIVE) Group A Strep Antibody (NEGATIVE) Slides for Path Review YES - Progress Progress: improved Progress Note: 12/08/20 14:47 1L NS bolus 1gm IV Rocephin CV19 test sent Counseled pt/family regarding: lab results, need for follow-up, rad results - Departure Departure Disposition: Home Clinical Impression: Urinary tract infection Condition: Stable Critical Care Time: No Referrals: JANUSZ MITCHELL [Primary Care Provider] - Instructions: Urinary Tract Infection, Adult (DC) Additional Instructions: Fluids/Rest Quarantine for 14days or until Covid19 test negative Bactrim twice a day for 5 days Follow up with your family MD Return to ER as needed Prescriptions: Sulfamethoxazole/Trimethoprim [Bactrim Ds Tablet] 1 each PO BID #10 tablet
[2020-12-08 13:50] LABS: Slide Review 1 YES
[2020-12-08 13:53] VITALS: BP 99/65; PULSE 78
[2020-12-08 13:55] LABS: INFLUENZA A NEGATIVE (NEGATIVE); INFLUENZA B NEGATIVE (NEGATIVE)
[2020-12-08] MEDS ORDERED: ROCEPHIN 1 Gm-D5w 50 ml Bag** 1 G/50 ML IVPB IV STA (14:44)
[2020-12-08] MEDS ORDERED: ROCEPHIN 1 Gm-D5w 50 ml Bag** 1 G/50 ML IVPB IV ONE (14:47)
--- NOTE | 2020-12-08 18:26 | XRAY ---
Indication: Cough. Comparison: May 01, 2018. Portable chest again demonstrates normal heart and lungs. Bony thorax intact again with old left 3/4 rib fractures.
== END 2020-12-08 15:12 | disposition home or self-care (01) ==
LOC: ED 12:42
DX: N39.0 Urinary tract infection, site not specified (principal); R50.9 Fever, unspecified; R05 Cough; R06.02 Shortness of breath; R07.89 Other chest pain; R11.2 Nausea with vomiting, unspecified; R19.7 Diarrhea, unspecified; Z20.828 Contact with and (suspected) exposure to other viral communicable diseases
CPT/HCPCS: 36415; 71045; 80053; 80307; 81001; 83605; 85025; 87086; 87400; 87651; 96360; 96365; 99284; U0003; J0696

== ENCOUNTER 2022-12-10 19:09 | Emergency (ER) | payer OTHER ==
[2022-12-10] MEDS ORDERED: TORAdol 30 mg Injection IM ONE (19:40)
[2022-12-10] MEDS ORDERED: Norflex 60 MG/2 ML IM ONE (19:40)
[2022-12-10 19:43] VITALS: O2SAT 99
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
[2022-12-10] MEDS ORDERED: TORAdol 30 mg Injection ONE (19:54)
[2022-12-10] MEDS ORDERED: Norflex 60 MG/2 ML ONE (19:54)
[2022-12-10 20:25] VITALS: BP 137/84; PULSE 92
== END 2022-12-10 20:25 | disposition home or self-care (01) ==
LOC: ED 19:09
DX: S39.012A Strain of muscle, fascia and tendon of lower back, initial encounter (principal); X50.9XXA Other and unspecified overexertion or strenuous movements or postures, initial encounter; Y93.01 Activity, walking, marching and hiking; G89.29 Other chronic pain; M54.50 Low back pain, unspecified; Z79.899 Other long term (current) drug therapy; Z28.310 Unvaccinated for COVID-19; Z72.0 Tobacco use
CPT/HCPCS: 96372; 99283; J1885; J2360

== ENCOUNTER 2023-02-23 20:50 | Emergency (ER) | payer OTHER ==
[2023-02-23 21:07] VITALS: O2SAT 99
[2023-02-23] MEDS ORDERED: TYLENOL 325 MG PO STA (21:07)
--- NOTE | 2023-02-23 21:09 | ERPHSYRPT ---
- History of Present Illness Time Seen by Provider: 02/23/23 21:09 Source: patient Exam Limitations: no limitations Patient Subjective Stated Complaint: L knee pain Triage Nursing Assessment: pt to ED by EMS c/o L knee pain r/t mechanical fall just [employer] [facility]. pt states she slipped, R foot went out from under her and weight fell on L knee. pt states 8/10 pain that worsens with movement or palpation. noted minimal swelling on assessment but no other obvious signs of injury. Physician History: Patient presents to ED by EMS c/o L knee pain after a mechanical fall just [employer] at [facility]. She slipped, R foot went out from under her and weight fell on L knee. pt states 8/10 pain that worsens with movement or palpation. noted minimal swelling on assessment but no other obvious signs of injury. Patient reports hx of OA, no previous surgeries. Method of Injury: fell Occurred: just prior to arrival Quality: constant Severity of Pain-Max: severe Severity of Pain-Current: severe Lower Extremities Pain: knee: left Modifying Factors: Improves With: nothing. Worsens With: movement Associated Symptoms: unable to bear weight Allergies/Adverse Reactions: Penicillins Allergy (Mild, Verified 02/23/23 20:51) Hives Home Medications: Sertraline HCl [Zoloft] 25 mg PO DAILY 12/10/22 [History] Naproxen 250 mg PO DAILY 02/23/23 [History] Hx Tetanus, Diphtheria Vaccination/Date Given: Yes Hx Influenza Vaccination/Date Given: No Hx Pneumococcal Vaccination/Date Given: No Immunizations Up to Date: Yes Travel Risk - International Travel Have you traveled outside of the country in past 3 weeks: No - Coronavirus Screening Are you exhibiting any of the following symptoms?: No Close contact with a COVID-19 positive Pt in past 14-21 Days: No - Vaccine Status Have you recieved a Covid-19 vaccination: No - Review of Systems Constitutional: No Symptoms Respiratory: No Symptoms Cardiac: No Symptoms Abdominal/Gastrointestinal: No Symptoms Musculoskeletal: Fall, Joint Pain (left knee), Joint Swelling (left knee) Skin: No Symptoms Neurological: No Symptoms - Past Medical History Pertinent Past Medical History: Yes Neurological History: Migraines ENT History: No Pertinent History Cardiac History: No Pertinent History Respiratory History: No Pertinent History Endocrine Medical History: No Pertinent History Musculoskeletal History: Osteoarthritis GI Medical History: No Pertinent History History: No Pertinent History Psycho-Social History: Anxiety, Bipolar, Depression Female Reproductive Disorders: No Pertinent History Other Medical History: [facility] WAS TOLD SHE HAD ARTHRITIS IN HER SHOULDER AT [facility] BUT [facility] SAID SHE DIDN'T. [facility] TOLD HER THE LIGAMENTS OF HER [employer]ATOR [employer] WERE DETERIORATING. HAS ONLY HAD XRAYS. NO MRI - Past Surgical History Past Surgical History: Yes Neuro Surgical History: No Pertinent History Cardiac: No Pertinent History Respiratory: No Pertinent History Gastrointestinal: Cholecystectomy Musculoskeletal: Orthopedic Surgery Female Surgical History: Section, Tubal Ligation Other Surgical History: CARPAL TUNNEL BILAT. TONSILS - Social History Smoking Status: Current every day smoker How long have you smoked: 30 Exposure to second hand smoke: Yes Drug Use: marijuana Patient Lives Alone: No Significant Family History: no pertinent family hx - Female History Hx Last Menstrual Period: last month Hx Now: No (tubal) - Nursing Vital Signs Nursing Vital Signs: Initial Vital Signs Temperature 98.8 F 02/23/23 20:54 Pulse Rate 92 H 02/23/23 20:54 Respiratory Rate 18 02/23/23 20:54 Blood Pressure 150/95 02/23/23 20:54 O2 Sat by Pulse Oximetry 99 02/23/23 20:54 Pain Scale Pain Intensity 8 - Physical Exam General Appearance: mild distress Knees Exam: left knee: no evidence of injury, bone tenderness, pain (anterior knee, neg prisca, posterior drawer, Nathalia), soft tissue tenderness, swelling Neuro/Tendon Exam: normal sensation, normal motor functions, normal tendon functions Mental Status Exam: alert, oriented x 3, cooperative Skin Exam: normal color, warm, dry SpO2 Interpretation: normal SpO2: 99 O2 Delivery: Room Air Procedures - Additional Procedures Progress: Knee steroid injection, left After discussion of risks and benefits of steroid injection, including but not limited to infection, bleeding, discomfort with injection, adverse reaction to protein, and possibility of no improvement in pain symptoms patient gave verbal and written consent. Knee was prepped with betadine x 3. Ethyl chloride. 80 mg of Depomedrol mixed with 2cc of 1% lidocaine w/o epi and 2cc of 0.25% Marcaine was then injected into knee using a 22 gauge needle using the inferolateral approach. Patient tolerated procedure well and was hemostatic at conclusion. Aftercare instructions provided, including returning to clinic if knees become warm, red, or more painful in the next 72 hours and limiting activity for the next 24-48 hours. - Course Nursing assessment & vital signs reviewed: Yes - Radiology Exams Left Knee X-ray Interpretation: Interpreted by me, Negative Ordered Tests: Active Orders 24 hr Category Date Time Status Cold Application STAT Care 02/23/23 21:00 Active IV Insertion STAT Care 02/23/23 20:52 Active KNEE (MIN 4 VIEW) Stat Exams 02/23/23 20:51 Taken Medication Summary Discontinued Medications Generic Name Dose Route Start Last Admin Trade Name Jen PRN Reason Stop Dose Admin Acetaminophen 975 mg 02/23/23 21:07 02/23/23 21:11 Acetaminophen 325 Mg Tablet PO 02/23/23 21:08 975 mg STAT STA Administration Acetaminophen Confirm 02/23/23 21:10 Acetaminophen 325 Mg Tablet Administered 02/23/23 21:11 Dose 975 mg .ROUTE .STK-MED ONE Bupivacaine HCl Confirm 02/23/23 21:31 Bupivacaine Hcl 2.5 Mg/Ml 10 Ml Administered 02/23/23 21:32 Dose 20 ml .ROUTE .STK-MED ONE Lidocaine HCl Confirm 02/23/23 21:31 Lidocaine Hcl 1% 20 Ml Mdv 20 Ml Ml Administered 02/23/23 21:32 Dose 2 ml .ROUTE .STK-MED ONE Methylprednisolone Acetate Confirm 02/23/23 21:30 Methylprednisolone Acetate 80 Mg/Ml Vial Administered 02/23/23 21:31 Dose 80 mg .ROUTE .STK-MED ONE - Progress Progress: improved Progress Note: 02/23/23 21:50 No fracture or dislocation noted. No concern for patellar or quad tendon injury. Offered left knee CSI for pain relief and patient agrees so CSI performed. Patient placed in jeff bandage and d/c home. Medical Desision Making - Diagnostic Testing Diagnostic test were ordered, analyzed, and reviewed by me: Yes Radiological Interpretation: Interpreted by me - Risk of complications Low Risk: Low risk of morbidity from additional dx testing or treatment - Departure Departure Disposition: Detention/Long-Term Clinical Impression: Left knee pain, Osteoarthritis of left knee Condition: Good Critical Care Time: No Referrals: JANUSZ LAYNE [Primary Care Provider] - Follow up/PCP as directed Instructions: Knee Pain (DC)
[2023-02-23] MEDS ORDERED: TYLENOL 325 MG ONE (21:10)
[2023-02-23] MEDS ORDERED: Depo-Medrol 80 MG/ML ONE (21:30)
[2023-02-23] MEDS ORDERED: XYLOCAINE 1% HCL 20 ML MDV ONE (21:31)
[2023-02-23] MEDS ORDERED: Sensorcaine 0.25% 10 ML ONE (21:31)
[2023-02-23] MEDS ORDERED: Sensorcaine 0.25% 10 ML IJ ONE (21:46)
[2023-02-23] MEDS ORDERED: XYLOCAINE 1% HCL 20 ML MDV IJ ONE (21:46)
[2023-02-23] MEDS ORDERED: Depo-Medrol 80 MG/ML IJ ONE (21:47)
[2023-02-23 22:00] VITALS: BP 149/88; PULSE 95
--- NOTE | 2023-02-24 08:37 | XRAY ---
Indication: Pain following fall. Comparison: None 4 view left knee demonstrates minimal lateral patella tilting. No other bony, articular, or soft tissue abnormalities.
== END 2023-02-23 22:07 | disposition home or self-care (01) ==
LOC: EEVIPCON 20:50 → ED 20:50
DX: M25.562 Pain in left knee (principal); M17.12 Unilateral primary osteoarthritis, left knee; Z79.899 Other long term (current) drug therapy; Z28.310 Unvaccinated for COVID-19; Z72.0 Tobacco use
CPT/HCPCS: 20610; 36000; 73564; 99284; J1040; A9270-GY

== ENCOUNTER 2023-03-09 19:44 | Emergency (ER) | payer OTHER ==
[2023-03-09] MEDS ORDERED: TORAdol 30 mg Injection IM ONE (20:30)
--- NOTE | 2023-03-09 20:30 | ERPHSYRPT ---
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 it is left (points to flank area) and comes around the side and to belly" Triage Nursing Assessment: pt ambulated to room 9 after standing on scale for weight acquisition, guard present and pt with bilat hands in handcuffs in front of her. pt is alert and oriented times three, resp even and unlabored, able to speak in complete sentences. abdomen soft and tender to palpation, pt with facial grimacing with palpation. Physician History: 43 yo WF w L flank/L CVA pain x 3 days. pain is sharp and 9/10 on scale. Walking and movement make the pain worse. She has had nausea wo vomiting/fever/dysuria/hematuria/increased frequency/melena/hematochezia. Timing/Duration: day(s) (3 days) Activities at Onset: rest Quality: sharpness Abdominal Pain Onset Location: flank (L flank/L CVA) Pain Radiation: back Severity of Pain-Max: severe Severity of Pain-Current: severe Modifying Factors: Improves With: movement (Worse w movement) Associated Symptoms: back Previous symptoms: no prior history Allergies/Adverse Reactions: Penicillins Allergy (Mild, Verified 03/09/23 19:53) Hives Home Medications: Sertraline HCl [Zoloft] 25 mg PO HS 12/10/22 [History] Naproxen 250 mg PO DAILY 02/23/23 [History] Hx Tetanus, Diphtheria Vaccination/Date Given: Yes Hx Influenza Vaccination/Date Given: No Hx Pneumococcal Vaccination/Date Given: No Immunizations Up to Date: Yes Travel Risk - International Travel Have you traveled outside of the country in past 3 weeks: No - Coronavirus Screening Are you exhibiting any of the following symptoms?: No Close contact with a COVID-19 positive Pt in past 14-21 Days: No - Vaccine Status Have you recieved a Covid-19 vaccination: No - Review of Systems Constitutional: No Symptoms Eyes: No Symptoms Ears, Nose, & Throat: No Symptoms Respiratory: No Symptoms Cardiac: No Symptoms Abdominal/Gastrointestinal: No Symptoms, Nausea Genitourinary Symptoms: No Symptoms Musculoskeletal: No Symptoms Skin: No Symptoms Neurological: No Symptoms Psychological: No Symptoms Endocrine: No Symptoms Hematologic/Lymphatic: No Symptoms Immunological/Allergic: No Symptoms - Past Medical History Pertinent Past Medical History: Yes Neurological History: Migraines ENT History: No Pertinent History Cardiac History: No Pertinent History Respiratory History: No Pertinent History Endocrine Medical History: No Pertinent History Musculoskeletal History: Osteoarthritis GI Medical History: No Pertinent History History: No Pertinent History Psycho-Social History: Anxiety, Bipolar, Depression Female Reproductive Disorders: No Pertinent History, Other Other Medical History: [facility] WAS TOLD SHE HAD ARTHRITIS IN HER SHOULDER AT [facility] BUT [facility] SAID SHE DIDN'T. [facility] TOLD HER THE LIGAMENTS OF HER [employer] WERE DETERIORATING. HAS ONLY HAD XRAYS. NO MRI Hep C+ - Past Surgical History Past Surgical History: Yes Neuro Surgical History: No Pertinent History Cardiac: No Pertinent History Respiratory: No Pertinent History Gastrointestinal: Cholecystectomy Genitourinary: No Pertinent History Musculoskeletal: Orthopedic Surgery Female Surgical History: Section, Tubal Ligation Other Surgical History: CARPAL TUNNEL BILAT. TONSILS - Social History Smoking Status: Current every day smoker How long have you smoked: 29 yrs Exposure to second hand smoke: Yes Drug Use: marijuana Patient Lives Alone: No Significant Family History: no pertinent family hx - Female History Hx Last Menstrual Period: Feb 10 Hx Now: No - Nursing Vital Signs Nursing Vital Signs: Initial Vital Signs Temperature 98.8 F 03/09/23 19:55 Pulse Rate 99 H 03/09/23 19:55 Respiratory Rate 16 03/09/23 19:55 Blood Pressure 173/93 03/09/23 19:55 O2 Sat by Pulse Oximetry 100 03/09/23 19:55 Pain Scale Pain Intensity 9 Hypertensive - Physical Exam General Appearance: no apparent distress (In pain) Eye Exam: PERRL/EOMI, eyes nml inspection Ears, Nose, Throat Exam: normal ENT inspection, TMs normal, pharynx normal, moist mucous membranes Neck Exam: normal inspection, non-tender, supple, full range of motion, No meningismus, No mass, No Brudzinski, No Kernig's Respiratory Exam: normal breath sounds, lungs clear, airway intact, No res piratory distress Cardiovascular Exam: regular rate/rhythm, normal heart sounds, normal peripheral pulses, capillary refill <2 sec, No murmur Gastrointestinal/Abdomen Exam: soft, normal bowel sounds, No tenderness Back Exam: CVA tenderness (L flank/L CVA TTP wo guarding or rebound) Extremity Exam: normal inspection, normal range of motion, pelvis stable Neurologic Exam: alert, oriented x 3, cooperative, hyperbaric technician II-XII nml as tested, normal mood/affect, nml cerebellar function, nml station & gait, sensation nml Skin Exam: normal color, warm, dry, No rash Lymphatic Exam: No adenopathy SpO2 Interpretation: normal SpO2: 100 O2 Delivery: Room Air - Course Nursing assessment & vital signs reviewed: Yes - CT Exams Abdomen/Pelvis CT Interpretation: Discussed w/radiologist (CT Ab-pelvis wo contrast- constipation) Ordered Tests: Active Orders 24 hr Category Date Time Status ABDOMEN AND PELVIS W/0 CONTRAS [CT] Stat Exams 03/09/23 21:27 Taken AMYLASE Stat Lab 03/09/23 21:45 Completed CBC W DIFF Stat Lab 03/09/23 21:45 Completed CMP Stat Lab 03/09/23 21:45 Completed HCG QUALITATIVE, URINE Stat Lab 03/09/23 20:10 Completed LIPASE Stat Lab 03/09/23 21:45 Completed UA W/RFX UR CULTURE Stat Lab 03/09/23 20:10 Completed Urine Triage Profile Stat Lab 03/09/23 20:28 Completed Medication Summary Discontinued Medications Generic Name Dose Route Start Last Admin Trade Name Freq PRN Reason Stop Dose Admin Droperidol 1.25 mg 03/09/23 22:11 03/09/23 22:15 Droperidol 5 Mg/2 Ml Vial IM 03/09/23 22:12 1.25 mg STAT ONE Administration Droperidol Confirm 03/09/23 22:14 Droperidol 5 Mg/2 Ml Vial Administered 03/09/23 22:15 Dose 5 mg .ROUTE .STK-MED ONE Ketorolac Tromethamine 30 mg 03/09/23 20:30 03/09/23 20:32 Ketorolac Tromethamine 30 Mg/Ml Inj IM 03/09/23 20:31 30 mg STAT ONE Administration Ketorolac Tromethamine Confirm 03/09/23 20:31 Ketorolac Tromethamine 30 Mg/Ml Inj Administered 03/09/23 20:32 Dose 30 mg .ROUTE .STK-MED ONE Lab/Rad Data: Laboratory Result Diagrams 03/09/23 21:45 03/09/23 21:45 Laboratory Results 04/11/23 04/11/23 04/11/23 Range/Units 21:45 21:45 20:28 WBC 9.5 (4.0-10.5) x10^3/uL RBC 4.49 (4.1-5.4) x10^6/uL Hgb 13.0 (12.0-16.0) g/dL Hct 40.1 (35-47) % MCV 89.3 (78-100) fL MCH 29.0 (26-32) pg MCHC 32.4 (32-36) g/dL RDW 13.6 (11.5-14.0) % Plt Count 240 (150-450) x10^3/uL MPV 9.5 (7.5-11.0) fL Gran % 63.4 (36.0-66.0) % Immature Gran % (Auto) 0.3 (0.00-0.4) % Nucleat RBC Rel Count 0.0 (0.00-0.1) % Eos # (Auto) 0.14 (0-0.5) x10^3/uL Immature Gran # (Auto) 0.03 (0.00-0.03) x10^3u/L Absolute Lymphs (auto) 2.59 (1.0-4.6) x10^3/uL Absolute Monos (auto) 0.69 (0.0-1.3) x10^3/uL Absolute Nucleated RBC 0.00 (0.00-0.01) x10^3u/L Lymphocytes % 27.2 (24.0-44.0) % Monocytes % 7.2 (0.0-12.0) % Eosinophils % 1.5 (0.00-5.0) % Basophils % 0.4 (0.0-0.4) % Absolute Granulocytes 6.03 (1.4-6.9) x10^3/uL Basophils # 0.04 (0-0.4) x10^3/uL Sodium 140 (137-145) mmol/L Potassium 4.1 (3.5-5.1) mmol/L Chloride 107 (98-107) mmol/L Carbon Dioxide 25 (22-30) mmol/L Anion Gap 12.2 (5-15) MEQ/L BUN 16 (7-17) mg/dL Creatinine 0.79 (0.52-1.04) mg/dL Estimated GFR > 60.0 ML/MIN Glucose 99 (74-106) mg/dL Calcium 9.0 (8.4-10.2) mg/dL Total Bilirubin 0.30 (0.2-1.3) mg/dL AST 42 H (14-36) U/L ALT 42 H (0-35) U/L Alkaline Phosphatase 66 (38-126) U/L Serum Total Protein 7.1 (6.3-8.2) g/dL Albumin 3.8 (3.5-5.0) g/dL Amylase 81 (30-110) U/L Lipase 86 (23-300) U/L Urine Color (Yellow) Urine Appearance (Clear) Urine pH (4.6-8.0) Ur Specific [place] (1.005-1.030) Urine Protein (Negative) Urine Glucose (UA) (Negative) mg/dL Urine Ketones (Negative) Urine Blood (Negative) Urine Nitrite (Negative) Urine Bilirubin (Negative) Urine Urobilinogen (0.2) mg/dL Ur Leukocyte Esterase (Negative) U Hyaline Cast (Auto) (0-2) /LPF Urine Microscopic RBC (0-5) /HPF Urine Microscopic WBC (0-5) /HPF Ur Epithelial Cells (None Seen) /HPF Urine Bacteria (None Seen) /HPF Urine Culture Reflexed (NO) Urine HCG, Qual (NEGATIVE) Urine Opiates Level NEGATIVE (NEGATIVE) Ur Methadone NEGATIVE (NEGATIVE) Urine Barbiturates NEGATIVE (NEGATIVE) Ur Phencyclidine (PCP) NEGATIVE (NEGATIVE) Urine Amphetamine NEGATIVE (NEGATIVE) U Benzodiazepine Level NEGATIVE (NEGATIVE) Urine Cocaine NEGATIVE (NEGATIVE) Urine Marijuana (THC) NEGATIVE (NEGATIVE) 03/09/23 03/09/23 Range/Units 20:10 20:10 WBC (4.0-10.5) x10^3/uL RBC (4.1-5.4) x10^6/uL Hgb (12.0-16.0) g/dL Hct (35-47) % MCV (78-100) fL MCH (26-32) pg MCHC (32-36) g/dL RDW (11.5-14.0) % Plt Count (150-450) x10^3/uL MPV (7.5-11.0) fL Gran % (36.0-66.0) % Immature Gran % (Auto) (0.00-0.4) % Nucleat RBC Rel Count (0.00-0.1) % Eos # (Auto) (0-0.5) x10^3/uL Immature Gran # (Auto) (0.00-0.03) x10^3u/L Absolute Lymphs (auto) (1.0-4.6) x10^3/uL Absolute Monos (auto) (0.0-1.3) x10^3/uL Absolute Nucleated RBC (0.00-0.01) x10^3u/L Lymphocytes % (24.0-44.0) % Monocytes % (0.0-12.0) % Eosinophils % (0.00-5.0) % Basophils % (0.0-0.4) % Absolute Granulocytes (1.4-6.9) x10^3/uL Basophils # (0-0.4) x10^3/uL Sodium (137-145) mmol/L Potassium (3.5-5.1) mmol/L Chloride (98-107) mmol/L Carbon Dioxide (22-30) mmol/L Anion Gap (5-15) MEQ/L BUN (7-17) mg/dL Creatinine (0.52-1.04) mg/dL Estimated GFR ML/MIN Glucose (74-106) mg/dL Calcium (8.4-10.2) mg/dL Total Bilirubin (0.2-1.3) mg/dL AST (14-36) U/L ALT (0-35) U/L Alkaline Phosphatase (38-126) U/L Serum Total Protein (6.3-8.2) g/dL Albumin (3.5-5.0) g/dL Amylase (30-110) U/L Lipase (23-300) U/L Urine Color Yellow (Yellow) Urine Appearance Clear (Clear) Urine pH 7.0 (4.6-8.0) Ur Specific [place] 1.025 (1.005-1.030) Urine Protein Negative (Negative) Urine Glucose (UA) Negative (Negative) mg/dL Urine Ketones Trace A (Negative) Urine Blood Negative (Negative) Urine Nitrite Negative (Negative) Urine Bilirubin Negative (Negative) Urine Urobilinogen 1.0 A (0.2) mg/dL Ur Leukocyte Esterase Small A (Negative) U Hyaline Cast (Auto) NONE SEEN (0-2) /LPF Urine Microscopic RBC 0-2 (0-5) /HPF Urine Microscopic WBC 6-10 A (0-5) /HPF Ur Epithelial Cells Few (None Seen) /HPF Urine Bacteria None Seen (None Seen) /HPF Urine Culture Reflexed NO (NO) Urine HCG, Qual NEGATIVE (NEGATIVE) Urine Opiates Level (NEGATIVE) Ur Methadone (NEGATIVE) Urine Barbiturates (NEGATIVE) Ur Phencyclidine (PCP) (NEGATIVE) Urine Amphetamine (NEGATIVE) U Benzodiazepine Level (NEGATIVE) Urine Cocaine (NEGATIVE) Urine Marijuana (THC) (NEGATIVE) - Progress Progress: improved Progress Note: 03/09/23 22:50 Nursing note and vital signs reviewed All lab results reviewed and sgared w pt CT results reviewed and shared w pt 30mg IM Toradol w mild improvement in pain Droperidol 1.25mg IM 03/09/23 22:51 03/09/23 22:52 Counseled pt/family regarding: lab results, diagnosis, need for follow-up, rad results Medical Desision Making - Social Determinants of Health Pt's dx & treatment plan are significantly limited by SDOH: Unemployed (In alf) Limited access to: transportation, medical care - Diagnostic Testing Diagnostic test were ordered, analyzed, and reviewed by me: Yes Radiological Interpretation: Discussed w/ radiologist - Risk of complications Low Risk: Low risk of morbidity from additional dx testing or treatment - Departure Departure Disposition: Home Clinical Impression: UTI (urinary tract infection), Constipation Condition: Stable Critical Care Time: No Referrals: JANUSZ LAYNE [Primary Care Provider] - Follow up/PCP as directed Instructions: Constipation, Adult (DC), Urinary Tract Infection, Adult (DC) Additional Instructions: Macrobid twice a day for 5 days Fluids Motrin/Tylenol for pain Return to ER for increasing pain or temperature greater than 100.5 Follow up with your family MD Try a mild laxative for constipation Prescriptions: Nitrofurantoin Macro 100 mg [Macrobid 100MG Capsule] 100 mg PO BID 5 Days #10 cap
[2023-03-09] MEDS ORDERED: TORAdol 30 mg Injection ONE (20:31)
[2023-03-09 20:50] LABS: HCG URINE TEST NEGATIVE (NEGATIVE)
[2023-03-09 20:55] LABS: Appearance Clear (Clear); Bacteria None Seen /HPF (None Seen); Bilirubin Negative (Negative); Blood Negative (Negative); Epithelial Cells Few /HPF (None Seen); Glucose, Urine Negative (Negative); Hyaline Casts NONE SEEN /LPF (0-2); Ketones Trace (Negative); Leukocyte Esterase Small (Negative); Nitrite Negative (Negative); Protein,Urine Dip Negative (Negative); RBC 0-2 /HPF (0-5); Specific Gravity 1.025 (1.005-1.030)
[2023-03-09 21:05] LABS: Amphetamine,Urine NEGATIVE (NEGATIVE); Barbiturate,Urine NEGATIVE (NEGATIVE); Benzodiazepine,Urine NEGATIVE (NEGATIVE); Cocaine,Urine NEGATIVE (NEGATIVE); Methadone,Urine NEGATIVE (NEGATIVE); Opiate,Urine NEGATIVE (NEGATIVE); PCP,Urine NEGATIVE (NEGATIVE); THC,Urine NEGATIVE (NEGATIVE)
[2023-03-09 21:20] LABS: ADD URINE CULTURE? NO (NO)
[2023-03-09 21:47] LABS: Absolute Neutrophil Ct (ANC) 6.03 x10^3/uL (1.4-6.9); BASOPHIL % 0.4 % (0.0-0.4); Basophil (Absolute #) 0.04 x10^3/uL (0-0.4); Eosinophil % 1.5 % (0.00-5.0); Eosinophil (Absolute #) 0.14 x10^3/uL (0-0.5); Hematocrit 40.1 % (35-47); IMMATURE GRAN # 0.03 x10^3u/L (0.00-0.03); IMMATURE GRAN % 0.3 % (0.00-0.4); Lymphocyte (Absolute #) 2.59 x10^3/uL (1.0-4.6); Lymphocytes % 27.2 % (24.0-44.0); Mean Cell Volume 89.3 fL (78-100); Mean Corpuscular Hgb Concent. 32.4 g/dL (32-36); Mean Platelet Volume 9.5 fL (7.5-11.0); Monocyte (Absolute #) 0.69 x10^3/uL (0.0-1.3); Monocytes % 7.2 % (0.0-12.0); Neutrophil % 63.4 % (36.0-66.0); Platelet Count 240 x10^3/uL (150-450); Red Blood Count 4.49 x10^6/uL (4.1-5.4); Red Cell Distribution Width 13.6 % (11.5-14.0); White Blood Count 9.5 x10^3/uL (4.0-10.5)
[2023-03-09 21:59] LABS: ALBUMIN 3.8 g/dL (3.5-5.0); ALKALINE PHOSPHATASE 66 U/L (38-126); AMYLASE 81 U/L (30-110); ANION GAP 12.2 MEQ/L (5-15); BLOOD UREA NITROGEN 16 mg/dL (7-17); CHLORIDE 107 mmol/L (98-107); Carbon Dioxide 25 mmol/L (22-30); Creatinine 1 0.79 mg/dL (0.52-1.04); EST GLOMERULAR FILTRATION RATE > 60.0 ML/MIN; Glucose 99 mg/dL (74-106); LIPASE 86 U/L (23-300); Potassium 4.1 mmol/L (3.5-5.1); SGOT/AST 42 U/L (14-36); SGPT/ALT 42 U/L (0-35); SODIUM 140 mmol/L (137-145); Total Protein 7.1 g/dL (6.3-8.2)
[2023-03-09 22:12] VITALS: BP 153/84; PULSE 110; O2SAT 100
--- NOTE | 2023-03-10 08:47 | XRAY ---
Indication: Left flank pain. Multiple contiguous axial images obtained through the abdomen and pelvis without contrast. Comparison: January 03, 2019 Lung bases remain clear. Heart not enlarged. Noncontrasted stomach and bowel loops appear nonobstructed again with normal appendix. There remains marked diffuse scattered colonic fecal debris throughout. Again cholecystectomy. No free fluid/air. Remaining liver, pancreas, spleen, adrenal glands, kidneys, ureters, bladder, uterus, and aorta are unremarkable for noncontrast exam. Osseous structures intact again with mild degenerative changes throughout the spine and multilevel Schmorl nodes. No ventral or inguinal hernias. Impression: 1. Again marked diffuse fecal stasis and chronic bony findings. 2. Remaining CT abdomen/pelvis without contrast exam continues to be negative.
== END 2023-03-09 22:33 | disposition home or self-care (01) ==
LOC: ED 19:44 → EEVIPCON 19:44 → ED 22:33
DX: N39.0 Urinary tract infection, site not specified (principal); K59.00 Constipation, unspecified; R10.9 Unspecified abdominal pain; R11.0 Nausea; Z79.899 Other long term (current) drug therapy; Z28.310 Unvaccinated for COVID-19; Z72.0 Tobacco use; Z56.0 Unemployment, unspecified; Z59.82 Transportation insecurity; Z75.3 Unavailability and inaccessibility of health-care facilities
CPT/HCPCS: 36415; 74176; 80053; 80307; 81001; 81025; 82150; 83690; 85025; 96372; 99283; J1885

== ENCOUNTER 2023-10-07 10:40 | Emergency (ER) | payer OTHER ==
--- NOTE | 2023-10-07 10:48 | ERPHSYRPT ---
- History of Present Illness Time Seen by Provider: 10/07/23 10:48 Source: patient Exam Limitations: no limitations Physician History: This is a 43-year-old white female patient of nurse practitioner Dwayne who has a history of bipolar disorder and depression and presents with coughing for approximately 1 month. Is getting more frequent. She states that it is a nonproductive cough. She has not had a measured fever. She denies nausea vomiting and diarrhea. She has no abdominal pain. Patient takes no medications chronically and she is allergic to penicillin. Patient is a daily smoker of cigarette tobacco and occasionally uses marijuana. Timing/Duration: other (Symptoms x1 month) Cough Quality/Degree: mild, dry cough Possible Cause: no prior episodes (To moderate) Modifying Factors: Improves With: coughing Associated Symptoms: cough, wheezing, No fever, No chest pain/soreness, No muscle aches, No shortness of breath, No sore throat Allergies/Adverse Reactions: Penicillins Allergy (Mild, Verified 10/07/23 11:05) Hives Hx Tetanus, Diphtheria Vaccination/Date Given: Yes Hx Influenza Vaccination/Date Given: No Hx Pneumococcal Vaccination/Date Given: No Travel Risk - International Travel Have you traveled outside of the country in past 3 weeks: No - Coronavirus Screening Are you exhibiting any of the following symptoms?: Yes Symptoms: Cough: New Onset, Shortness of Breath (Coughing) - Vaccine Status Have you recieved a Covid-19 vaccination: No - Review of Systems Constitutional: No Symptoms Eyes: No Symptoms Ears, Nose, & Throat: No Symptoms Respiratory: Cough, Dyspnea (With coughing), Wheezing (Occasionally) Cardiac: No Symptoms Abdominal/Gastrointestinal: No Symptoms Genitourinary Symptoms: No Symptoms Musculoskeletal: No Symptoms Skin: No Symptoms Neurological: No Symptoms Psychological: No Symptoms Endocrine: No Symptoms Hematologic/Lymphatic: No Symptoms Immunological/Allergic: No Symptoms All Other Systems: Reviewed and Negative - Past Medical History Pertinent Past Medical History: Yes Neurological History: Migraines ENT History: No Pertinent History Cardiac History: No Pertinent History Respiratory History: No Pertinent History Endocrine Medical History: No Pertinent History Musculoskeletal History: Osteoarthritis GI Medical History: No Pertinent History History: No Pertinent History Psycho-Social History: Anxiety, Bipolar, Depression Female Reproductive Disorders: No Pertinent History, Other Other Medical History: [facility] WAS TOLD SHE HAD ARTHRITIS IN HER SHOULDER AT [facility] BUT [facility] SAID SHE DIDN'T. [facility] TOLD HER THE LIGAMENTS OF HER [employer] WERE DETERIORATING. HAS ONLY HAD XRAYS. NO MRI Hep C+ - Past Surgical History Past Surgical History: Yes Neuro Surgical History: No Pertinent History Cardiac: No Pertinent History Respiratory: No Pertinent History Gastrointestinal: Cholecystectomy Genitourinary: No Pertinent History Musculoskeletal: Orthopedic Surgery Female Surgical History: Section, Tubal Ligation Other Surgical History: CARPAL TUNNEL BILAT. TONSILS - Social History Smoking Status: Current every day smoker How long have you smoked: 29 yrs Exposure to second hand smoke: Yes Drug Use: marijuana Patient Lives Alone: No Significant Family History: no pertinent family hx - Nursing Vital Signs Nursing Vital Signs: Initial Vital Signs Temperature 97.3 F 10/07/23 10:56 Pulse Rate 74 10/07/23 10:56 Respiratory Rate 18 10/07/23 10:56 Blood Pressure 151/89 10/07/23 10:56 O2 Sat by Pulse Oximetry 99 10/07/23 10:56 Pain Scale Pain Intensity 0 - Physical Exam General Appearance: no apparent distress, alert, anxiety Eye Exam: PERRL/EOMI, eyes nml inspection Ears, Nose, Throat Exam: normal ENT inspection, moist mucous membranes Neck Exam: normal inspection, non-tender, supple, full range of motion Respiratory Exam: airway intact, rhonchi (I merrily right upper lobe), No chest tenderness, No respiratory distress Cardiovascular Exam: regular rate/rhythm, normal heart sounds, normal peripheral pulses Gastrointestinal/Abdomen Exam: soft, normal bowel sounds, No tenderness Pelvic Exam: not done Rectal Exam: not done Back Exam: normal inspection, normal range of motion, No CVA tenderness, No vertebral tenderness Extremity Exam: normal inspection, normal range of motion, pelvis stable Neurologic Exam: alert, oriented x 3, cooperative, tortilla maker II-XII nml as tested, nml cerebellar function, nml station & gait, sensation nml Skin Exam: normal color, warm, dry Lymphatic Exam: No adenopathy SpO2 Interpretation: normal - Course Nursing assessment & vital signs reviewed: Yes Ordered Tests: Active Orders 24 hr Category Date Time Status CHEST 1 VIEW (PORTABLE) Stat Exams 10/07/23 11:05 Completed Medication Summary Discontinued Medications Generic Name Dose Route Start Last Admin Trade Name Freq PRN Reason Stop Dose Admin Hydrocodone Bitart/Acetaminophen 10 ml 10/07/23 11:04 10/07/23 11:09 Hydrocodone/Acetaminophen 5 Ml Udcup PO 10/07/23 11:05 10 ml STAT STA Administration Hydrocodone Bitart/Acetaminophen Confirm 10/07/23 11:08 Hydrocodone/Acetaminophen 5 Ml Udcup Administered 10/07/23 11:09 Dose 10 ml .ROUTE .STK-MED ONE Methylprednisolone Sodium 0 mg 10/07/23 11:04 10/07/23 11:09 Succinate 125 mg/ Sterile IM 10/07/23 11:05 125 mg Water 2 ml STAT ONE Administration Methylprednisolone Sodium Succinate Confirm 10/07/23 11:08 Methylprednis Sod Succ 125 Mg/2 Ml Vial Administered 10/07/23 11:09 Dose 125 mg .ROUTE .STK-MED ONE Sterile Water Confirm 10/07/23 11:08 Water For Injection,Sterile 10 Ml Vial Administered 10/07/23 11:09 Dose 10 ml IJ .STK-MED ONE Lab/Rad Data: Laboratory Results 10/07/23 10/07/23 Range/Units 11:10 11:10 Influenza Type A Ag NEGATIVE (NEGATIVE) Influenza Type B Ag NEGATIVE (NEGATIVE) RSV (PCR) NEGATIVE (NEGATIVE) SARS-CoV-2 (PCR) NEGATIVE (NEGATIVE) Group A Strep Antibody NOT DETECTED (NEGATIVE) - Progress Progress: improved, re-examined Air Movement: good Progress Note: 10/07/23 11:10 This patient's medical issue is 1 of low complexity. Level of complexity in the work-up performed is based on review of the patient's past medical history, review of the patient's medication list, history of present illness and physical findings on examination the work-up in this patient includes a chest x-ray, viral studies and group A strep test. We will also provide the patient with intramuscular Solu-Medrol 125 mg and hydrocodone/acetaminophen elixir to help suppress her cough. 10/07/23 12:02 The chest x-ray was interpreted by the radiologist. I reviewed the impression. There is an old healed fracture of ribs 3 and 4 on the left side. There is no evidence of any acute cardiopulmonary process. Blood Culture(s) Obtained: No Counseled pt/family regarding: lab results, diagnosis, need for follow-up, rad results Medical Desision Making - Diagnostic Testing Diagnostic test were ordered, analyzed, and reviewed by me: Yes Radiological Interpretation: Reviewed by me, Teleradiologist Report - Risk of complications The pt has a mod risk of morbidity or mortality based on: Need for prescription drug management - Departure Departure Disposition: Home Clinical Impression: Bronchitis Condition: Stable Critical Care Time: No Referrals: MONTY KOTHARI NP [Primary Care Provider] - Follow up/PCP as directed Additional Instructions: Drink plenty of fluids. Avoid exposure to any kind of smoke. Take your medication as prescribed. Call your primary care provider today, 10/07/2023, to make arrangements for follow-up appointment in the next 3 to 5 days. Prescriptions: Prednisone 10 mg [Deltasone 10 mg] 10 mg PO TID #12 tablet Hydrocodone/Acetaminophen [Hydrocodone-Acetamn 7.5-325/15] 10 ml PO Q8H PRN #120 ml MDD 30 ml PRN Reason: Cough Albuterol 8 gm Mdi Hfa [Ventolin Hfa MDI] 8 gm IH Q4H #1 unit
[2023-10-07] MEDS ORDERED: solu-MEDROL 125 MG, Sterile H2O 10 ml 2 ML IM ONE ×2 (11:04)
[2023-10-07] MEDS ORDERED: HYDROCODONE-ACETAMIN 2.5-108/5 ML SOLUTION PO STA (11:04)
[2023-10-07 11:05] VITALS: TEMP 97.3
[2023-10-07] MEDS ORDERED: solu-MEDROL ONE (11:08)
[2023-10-07] MEDS ORDERED: HYDROCODONE-ACETAMIN 2.5-108/5 ML SOLUTION ONE (11:08)
[2023-10-07] MEDS ORDERED: Sterile H2O 10 ml IJ ONE (11:08)
--- NOTE | 2023-10-07 11:38 | XRAY ---
Indication: Cough 1 month. Comparison: December 08, 2020 Portable apical lordotic chest again demonstrates normal heart and lungs. Bony thorax intact again with old left 3/4 rib fractures. No new/acute findings.
[2023-10-07 11:50] LABS: INFLUENZA A NEGATIVE (NEGATIVE); INFLUENZA B NEGATIVE (NEGATIVE); RESPIRATORY SYNCTIAL VIRUS NEGATIVE (NEGATIVE); SARS-CoV-2 Xpert Express NEGATIVE (NEGATIVE)
[2023-10-07 12:24] VITALS: O2SAT 96
[2023-10-07 12:30] VITALS: BP 153/96; PULSE 71; RESP 16
== END 2023-10-07 12:30 | disposition home or self-care (01) ==
LOC: ED 10:40
DX: J40 Bronchitis, not specified as acute or chronic (principal); R05.3 Chronic cough; Z79.891 Long term (current) use of opiate analgesic; Z79.52 Long term (current) use of systemic steroids; Z28.310 Unvaccinated for COVID-19; Z72.0 Tobacco use
CPT/HCPCS: 0241U; 71045; 87651; 96372; 99283; J2930; A9270-GY

== ENCOUNTER 2024-02-13 18:10 | Emergency (ER) | payer OTHER ==
[2024-02-13 18:43] VITALS: RESP 18; TEMP 97; O2SAT 99
--- NOTE | 2024-02-13 18:49 | ERPHSYRPT ---
- History of Present Illness Time Seen by Provider: 02/13/24 18:48 Source: patient, family Exam Limitations: no limitations Physician History: pt received [facility] not yet seen by Dr. Vera with hip pain. THere was no data to discuss since he had not yet seen the pt. Hx pain and sciatical left hip and is musch worse the laqst 2 days but no hx trauma. No abd or CP or SOBreath, No fever. No rash. No swelling. ROm right hip reproduces pain exactly. abd is soft and nontender without peritoneal signs or masses, no mass or distension. chest clear ht reg without M. ext without edema. no erythema. no swelling THe pt hx is collaborated and confirmed by the in ER as independent source. Discussed risks/benefits with pt and spouse of CT and toradol for pain and they wish to proceed. These are ordered. results discussed. Method of Injury: other (hx chronic right hip pain but worse last 2 days and cammopt walk on it. ) Occurred: days ago Quality: constant, sharpness Severity of Pain-Max: moderate Severity of Pain-Current: moderate Lower Extremities Pain: hip: right Modifying Factors: Improves With: movement Associated Symptoms: unable to bear weight Allergies/Adverse Reactions: Penicillins Allergy (Mild, Verified 02/13/24 18:41) Hives Home Medications: No Reportable Medications [No Reported Medications] 02/13/24 [History] Hx Tetanus, Diphtheria Vaccination/Date Given: Yes Hx Influenza Vaccination/Date Given: No Hx Pneumococcal Vaccination/Date Given: No Travel Risk - Vaccine Status Have you recieved a Covid-19 vaccination: No - Review of Systems Constitutional: No Fever, No Chills Eyes: No Symptoms Ears, Nose, & Throat: No Symptoms Respiratory: No Cough, No Dyspnea Cardiac: No Chest Pain, No Edema, No Syncope Abdominal/Gastrointestinal: No Abdominal Pain, No Nausea, No Vomiting, No Diarrhea Genitourinary Symptoms: No Dysuria Musculoskeletal: Joint Pain, No Back Pain, No Neck Pain, No Fall, No Injury Skin: No Symptoms, No Rash Neurological: No Symptoms, No Dizziness, No Focal Weakness, No Sensory Changes Psychological: No Symptoms Endocrine: No Symptoms Hematologic/Lymphatic: No Symptoms Immunological/Allergic: No Symptoms All Other Systems: Reviewed and Negative - Past Medical History Pertinent Past Medical History: Yes Neurological History: Migraines ENT History: No Pertinent History Cardiac History: No Pertinent History Respiratory History: No Pertinent History Endocrine Medical History: No Pertinent History Musculoskeletal History: Osteoarthritis GI Medical History: No Pertinent History History: No Pertinent History Psycho-Social History: Anxiety, Bipolar, Depression Female Reproductive Disorders: No Pertinent History, Other Other Medical History: [facility] WAS TOLD SHE HAD ARTHRITIS IN HER SHOULDER AT [facility] BUT [facility] SAID SHE DIDN'T. [facility] TOLD HER THE LIGAMENTS OF HER [employer] WERE DETERIORATING. HAS ONLY HAD XRAYS. NO MRI Hep C+ - Past Surgical History Past Surgical History: Yes Neuro Surgical History: No Pertinent History Cardiac: No Pertinent History Respiratory: No Pertinent History Gastrointestinal: Cholecystectomy Genitourinary: No Pertinent History Musculoskeletal: Orthopedic Surgery Female Surgical History: Section, Tubal Ligation Other Surgical History: CARPAL TUNNEL BILAT. TONSILS Significant Family History: no pertinent family hx - Social History Smoking Status: Current every day smoker How long have you smoked: 29 yrs Exposure to second hand smoke: Yes Drug Use: marijuana Patient Lives Alone: No - Nursing Vital Signs Nursing Vital Signs: Initial Vital Signs Blood Pressure 132/110 02/13/24 18:41 O2 Sat by Pulse Oximetry 99 02/13/24 18:41 Pain Scale Pain Intensity 10 - Physical Exam General Appearance: mild distress, alert Eyes, Ears, Nose, Throat Exam: moist mucous membranes Neck Exam: non-tender, supple Cardiovascular/Respiratory Exam: chest non-tender, normal breath sounds, regular rate/rhythm, no respiratory distress Gastrointestinal/Abdominal Exam: non-tender, guarding Back Exam: normal inspection, No vertebral tenderness Hips Exam: right: bone tenderness, limited range of motion, pain, left: non- tender, normal inspection, normal range of motion, no evidence of injury Legs Exam: bilateral leg: non-tender, normal inspection, normal range of motion, no evidence of injury Knees Exam: bilateral knee: non-tender, normal inspection, normal range of moriah on, no evidence of injury Ankle Exam: bilateral ankle: non-tender, normal inspection, normal range of motion, no evidence of injury Foot Exam: bilateral foot: non-tender, normal inspection, normal range of motion, no evidence of injury DTR - Lower Extremities Exam: knee (R): 2+, knee (L): 2+, ankle (R): 2+, ankle (L): 2+ Neuro/Tendon Exam: normal sensation, normal motor functions, normal tendon functions, no evidence tendon injury Mental Status Exam: alert, oriented x 3, cooperative Skin Exam: normal color, warm, dry SpO2 Interpretation: normal SpO2: 99 O2 Delivery: Room Air - Course Nursing assessment & vital signs reviewed: Yes Ordered Tests: Active Orders 24 hr Category Date Time Status LOWER EXTREMITY WO CONTRAST [CT] Stat Exams 02/13/24 19:55 Ordered Medication Summary Discontinued Medications Generic Name Dose Route Start Last Admin Trade Name Jen PRN Reason Stop Dose Admin Ketorolac Tromethamine 60 mg 02/13/24 19:56 Ketorolac Tromethamine 30 Mg/Ml Inj IM 02/13/24 19:57 STAT ONE - Progress Progress: improved, re-examined Progress Note: 02/13/24 20:01 the pt came to us and decided not to pursue evaluation and Tx after all and that she wanted to leave without discharge formalities or further treatment. she and spouse are of normal mental status and were advised that undetected pathology of serious nature could be developing but choose to leave and either seek care elsewhere or with their Dr. of their choice rather than completing w/u here or admission in hospital or formal transfer arrangement and they have the capacity to make this choice to leave AMA at this time. 02/13/24 20:06 Counseled pt/family regarding: lab results, diagnosis, need for follow-up, rad results Medical Desision Making - Independent Historian Additional History obtained from: Spouse - Discussion of managment Reviewed:: Test results, Need for additional workup Agreed on:: Treatment plan, need for follow-up - Diagnostic Testing Diagnostic test were ordered, analyzed, and reviewed by me: Yes Radiological Interpretation: Reviewed by me - Risk of complications The pt has a mod risk of morbidity or mortality based on: Need for prescription drug management The pt has a high risk of morbidity or mortality based on: Decision regarding hospitilization or escalation of hosp level of care - Departure Departure Disposition: AMA Clinical Impression: Right hip pain Condition: Good Critical Care Time: No Referrals: MONTY KOTHARI NP [Primary Care Provider] - Follow up/PCP as directed Instructions: Sciatica (DC), Hip Pain (DC) Additional Instructions: followup with your Dr. tomás garland workup, There could be undetected problems of a serious nature and we have not been able to work you up since you have decided to leave. We recommend further eval in ER [facility]. .
[2024-02-13] MEDS ORDERED: TORAdol 30 mg Injection IM ONE (19:56)
[2024-02-13 20:00] VITALS: BP 118/92; PULSE 106
== END 2024-02-13 19:58 | disposition left against medical advice (07) ==
LOC: ED 18:10
DX: M25.551 Pain in right hip (principal); Z28.310 Unvaccinated for COVID-19; Z72.0 Tobacco use
CPT/HCPCS: 99282